=== PATIENT | male | born 1930 | race Hispanic/Latino ===

== ENCOUNTER 2017-10-01 10:25 | Inpatient (IN) | payer MEDICARE ==
[2017-10-01 10:43] VITALS: BMI 28.3
--- NOTE | 2017-10-01 11:14 | ED PDOC ---
Arrival/HPI - General Chief Complaint: Altered Mental Status Time Seen by Provider: 10/01/17 10:32 Historian: Patient - History of Present Illness Narrative History of Present Illness (Text): 10/01/17 11:08 A 87 year old male, whose past medical history includes COPD, emphysema, presents to the emergency department complaining of hallucinations and questionable fall. as per family, pt has had symptoms x few montsh, at times "reliving dreams". had possilbe fal few days ago. Patient was sent by PMD for evaluation of symptoms. Patient denies any other complaints at this time. No PMD 10/01/17 16:55 Past Medical History - Provider Review Nursing Documentation Reviewed: Yes - Tetanus Immunization Tetanus Immunization: Unknown - Pulmonary Hx Respiratory Disorders: Yes Hx Chronic Obstructive Pulmonary Disease (COPD): Yes Hx Emphysema: Yes - Neurological Hx Paralysis: No - HEENT Hx HEENT Disorder: Yes (6 INJECTIONS TO EYE (L).RIGHT EYE BLURRY VISION) Hx Macular Degeneration: Yes - Renal Hx Renal Disorder: Yes Hx Dialysis: (X12 TIMES COMPLETED AND REVERSED.) Hx Renal Failure: Yes - Hematological/Oncological Hx Blood Transfusions: No Hx Blood Transfusion Reaction: No - Musculoskeletal/Rheumatological Hx Musculoskeletal Disorders: Yes - Gastrointestinal Hx Gastrointestinal Disorders: Yes Hx Diverticulitis: Yes Hx Gastroesophageal Reflux: Yes - Genitourinary/Gynecological Hx Genitourinary Disorders: Yes (ACUTE RENAL FAILURE WITH HD(NEW)) - Psychiatric Hx Substance Use: No - Surgical History Hx Cardiac Catheterization: Yes Hx Coronary Stent: Yes (X1) - Anesthesia Hx Anesthesia Reactions: No Hx Malignant Hyperthermia: No - Suicidal Assessment Feels Threatened In Home Enviroment: No Family/Social History - Physician Review Nursing Documentation Reviewed: Yes Family/Social History: No Known Family HX Smoking Status: Former Smoker Hx Alcohol Use: No Hx Substance Use: No Hx Substance Use Treatment: No Allergies/Home Meds Allergies/Adverse Reactions: Allergies No Known Allergies Allergy (Verified 10/30/12 10:59) Home Medications: Home Meds Medication Instructions Recorded Confirmed Tiotropium [Spiriva] 18 mcg IH DAILY 01/15/13 10/01/17 Alprazolam [Xanax] 0.5 mg PO DAILY PRN 10/24/15 10/01/17 Amlodipine Besylate [Norvasc] 2.5 mg PO DAILY 10/24/15 10/01/17 Aspirin [Ecotrin] 81 mg PO DAILY 10/24/15 10/01/17 Atorvastatin [Lipitor] 40 mg PO DAILY 10/24/15 10/01/17 Budesonide/Formoterol Fumarate 1 puff INH BID 10/24/15 10/01/17 [Symbicort 80-4.5 Mcg Inhaler] Furosemide 40 mg PO DAILY 10/24/15 10/01/17 Gabapentin [Neurontin] 100 mg PO TID 10/24/15 10/01/17 Nortriptyline HCl 10 mg PO DAILY 10/24/15 10/01/17 Omeprazole 20 mg PO DAILY 10/24/15 10/01/17 Calcium Carbonate/Vitamin D3 1 tab PO DAILY 10/01/17 10/01/17 [Caltrate 600 Plus D3 Tablet] Review of Systems - Physician Review All systems were reviewed & negative as marked: Yes - Review of Systems Constitutional: Other (questionable fall). absent: Fevers Psychiatric: Other (hallucinations) Physical Exam Vital Signs Reviewed: Yes Vital Signs Temp Pulse Resp BP Pulse Ox 10/01/17 15:39 63 18 127/63 98 10/01/17 13:07 61 18 128/56 L 98 10/01/17 10:25 97.6 F 65 18 126/71 99 Temperature: Afebrile Blood Pressure: Normal Pulse: Regular Respiratory Rate: Normal Appearance: Positive for: Well-Appearing Pain Distress: None Mental Status: Positive for: Alert and Oriented X 3 - Systems Exam Head: Present: Atraumatic, Normocephalic Pupils: Present: PERRL Extroacular Muscles: Present: EOMI Conjunctiva: Present: Normal Mouth: Present: Moist Mucous Membranes Neck: Present: Normal Range of Motion Respiratory/Chest: Present: Clear to Auscultation, Good Air Exchange. No: Respiratory Distress, Accessory Muscle Use Cardiovascular: Present: Regular Rate and Rhythm, Normal S1, S2. No: Murmurs Abdomen: No: Tenderness, Distention, Peritoneal Signs Back: Present: Normal Inspection Upper Extremity: Present: Normal Inspection. No: Cyanosis, Edema Lower Extremity: Present: Normal Inspection. No: Edema Neurological: Present: GCS=15, CN II-XII Intact, Speech Normal Skin: Present: Warm, Dry, Normal Color. No: Rashes Psychiatric: Present: Alert, Oriented x 3, Normal Insight, Normal Concentration Medical Decision Making ED Course and Treatment: 10/01/17 11:12 Impression: 87 year old male hallucinations and questionable fall. Benign physical exam. ro metabolic infectiou intracranial etiology Plan: -- EKG -- Head CT -- Chest X-ray -- Labs -- Urinalysis -- Reassess and disposition Progress Notes: 10/01/2017 11:[address] IMPRESSION: No acute intracranial abnormality. Mild chronic microangiopathic changes and moderate age-related global parenchymal volume loss. Dictator: Preeti Collado MD 10/01/2017 11:40 Chest X-ray IMPRESSION: No active pulmonary disease. Dictator: Preeti Collado MD 10/01/17 16:[address] guthrie will admit for worsenig renal insufficiency. consider uremia, - Lab Interpretations Lab Results: 10/01/17 11:20 10/01/17 11:20 Lab Results 10/01/17 11:20: Sodium 140, Potassium 5.2 H, Chloride 104, Carbon Dioxide 23, Anion Gap 18, BUN 66 H, Creatinine 4.0 H, Est GFR ( Amer) 17, Est GFR ( Non-Af Amer) 14, Random Glucose 129 H, Calcium 9.2, Magnesium 2.3 H, Total Bilirubin 1.2, AST 36, ALT 45, Alkaline Phosphatase 103, Lactate Dehydrogenase 536, Total Creatine Kinase 45, Troponin I 0.01 D, Total Protein 8.1, Albumin 4.4, Globulin 3.8, Albumin/Globulin Ratio 1.2 10/01/17 11:20: PT 15.3 H, INR 1.32 H, APTT 29.0 10/01/17 11:20: WBC 11.0 D, RBC 5.10, Hgb 15.7, Hct 45.8, MCV 89.8, MCH 30.8, MCHC 34.3, RDW 13.2, Plt Count 236, MPV 10.1, Gran % 71.6 H, Lymph % (Auto) 10.3 L, Wilson % (Auto) 15.8 H, Eos % (Auto) 2.0, Baso % (Auto) 0.3, Gran # 7.84 H , Lymph # (Auto) 1.1 L, Wilson # (Auto) 1.7 H, Eos # (Auto) 0.2, Baso # (Auto) 0.03 10/01/17 11:02: Urine Color Cancelled, Urine Appearance Cancelled, Urine pH Cancelled, Ur Specific [place] Cancelled, Urine Protein Cancelled, Urine Glucose (UA) Cancelled, Urine Ketones Cancelled, Urine Blood Cancelled, Urine Nitrate Cancelled, Urine Bilirubin Cancelled, Urine Urobilinogen Cancelled, Ur Leukocyte Esterase Cancelled, Urine RBC Cancelled, Urine WBC Cancelled, Ur Epithelial Cells Cancelled, Calcium Oxalate Crystal Cancelled, Uric Acid Crystals Cancelled, Triple Phos Crystals Cancelled, Other Crystals Cancelled, Amorphous Sediment Cancelled, Urine Bacteria Cancelled, Hyaline Casts Cancelled , Fine Granular Casts Cancelled, Coarse Granular Casts Cancelled, Waxy Casts Cancelled, RBC Casts Cancelled, WBC Casts Cancelled, Urine Other Cancelled - RAD Interpretation Radiology Orders: 10/01/17 10:53 HEAD W/O CONTRAST [CT] Stat 10/01/17 11:03 CHEST PORTABLE [RAD] Stat - Medication Orders Current Medication Orders: Albuterol/Ipratropium (Duoneb 3 Mg/0.5 Mg (3 Ml) Ud) 3 ml IH [id number] BRYAN Alprazolam (Xanax) 0.5 mg PO DAILY PRN; Protocol PRN Reason: Anxiety Amlodipine Besylate (Norvasc) 2.5 mg PO DAILY [facility] Aspirin (Ecotrin) 81 mg PO DAILY BRYAN Atorvastatin Calcium (Lipitor) 40 mg PO DAILY BRYAN Clopidogrel Bisulfate (Plavix) 75 mg PO DAILY BRYAN Gabapentin (Neurontin) 100 mg PO TID BRYAN PRN Reason: Protocol Sodium Chloride (Sodium Chloride 0.45%) 1,000 mls @ 80 mls/hr IV [id number] BRYAN Isosorbide Mononitrate (Imdur Er) 30 mg PO DAILY BRYAN Metoprolol Tartrate (Lopressor) 25 mg PO BID BRYAN Nortriptyline HCl (Pamelor) 10 mg PO DAILY BRYAN Pantoprazole Sodium (Protonix Ec Tab) 20 mg PO 0600 BRYAN Tamsulosin HCl (Flomax) 0.4 mg PO DAILY BRYAN Tiotropium Dieterich (Spiriva) 18 mcg IH DAILY BRYAN - Scribe Statement The provider has reviewed the documentation as recorded by the Nelson Ortega Provider Scribe Attestation: All medical record entries made by the Scribe were at my direction and personally dictated by me. I have reviewed the chart and agree that the record accurately reflects my personal performance of the history, physical exam, medical decision making, and the department course for this patient. I have also personally directed, reviewed, and agree with the discharge instructions and disposition. Disposition/Present on Arrival - Present on Arrival Any Indicators Present on Arrival: No History of DVT/PE: No History of Uncontrolled Diabetes: No Urinary Catheter: No History of Decub. Ulcer: No History Surgical Site Infection Following: None - Disposition Have Diagnosis and Disposition been Completed?: Yes Diagnosis: Altered mental status, Renal failure Disposition: HOSPITALIZED Disposition Time: 03:00 Patient Problems: Current Active Problems Problem Status Onset Altered mental status Acute Renal failure Acute Condition: STABLE
[2017-10-01 11:25] LABS: BASO # 0.03 K/mm3 (0.0-2.0); BASO % 0.3 % (0.0-3.0); EOS # 0.2 (0.0-0.7); GRAN # 7.84 (1.4-6.5); GRAN % 71.6 % (50.0-68.0); HEMOGLOBIN 15.7 g/dL (14.0-18.0); LYMPH # 1.1 (1.2-3.4); LYMPH % 10.3 % (22.0-35.0); MEAN CELL VOLUME 89.8 fl (80.0-105.0); MEAN CORPUSCULAR HEMOGLOBIN 30.8 pg (25.0-35.0); MEAN CORPUSCULAR HGB CONC 34.3 g/dl (31.0-37.0); MEAN PLATELET VOLUME 10.1 fl (7.0-11.0); MONO # 1.7 (0.1-0.6); MONO % 15.8 % (1.0-6.0); RBC 5.1 10^6/uL (3.5-6.1); RED CELL DISTRIBUTION WIDTH 13.2 % (11.5-14.5)
--- NOTE | 2017-10-01 11:36 | CT ---
PROCEDURE: CT HEAD WITHOUT CONTRAST. HISTORY: Altered mental status COMPARISON: None available. TECHNIQUE: Axial computed tomography images were obtained through the head/brain without intravenous contrast. Radiation dose: Total exam DLP = 903.12 mGy-cm. This CT exam was performed using one or more of the following dose reduction techniques: Automated exposure control, adjustment of the mA and/or kV according to patient size, and/or use of iterative reconstruction technique. FINDINGS: HEMORRHAGE: No intracranial hemorrhage. BRAIN: There are mild chronic microangiopathic changes. There is no mass, mass effect or abnormal extra-axial fluid collection. There is no territorial infarction. There are coarse atherosclerotic calcifications in the cavernous carotid arteries. VENTRICLES: There is moderate age-related global parenchymal volume loss and proportionate enlargement of the ventricles and cortical sulci. CALVARIUM: There is no calvarial fracture or extracranial soft tissue swelling. PARANASAL SINUSES: Predominantly clear. MASTOID AIR CELLS: Predominantly clear. OTHER FINDINGS: None. IMPRESSION: No acute intracranial abnormality. Mild chronic microangiopathic changes and moderate age-related global parenchymal volume loss.
[2017-10-01 11:38] LABS: ALB/GLOB RATIO 1.2 (1.1-1.8); ALBUMIN 4.4 g/dL (3.0-4.8); CALCIUM 9.2 mg/dL (8.4-10.5)
--- NOTE | 2017-10-01 11:42 | RAD ---
HISTORY: Altered mental status COMPARISON: 06/19/2016. FINDINGS: LUNGS: The lungs are well inflated and. PLEURA: No significant pleural effusion identified, no pneumothorax apparent. CARDIOVASCULAR: The heart is normal in size. Atherosclerotic aortic arch calcifications are present. There is stable position of a left-sided pacemaker. OSSEOUS STRUCTURES: No significant abnormalities. VISUALIZED UPPER ABDOMEN: Normal. OTHER FINDINGS: None. IMPRESSION: No active pulmonary disease.
[2017-10-01 11:49] LABS: TROPONIN I 0.01 ng/mL
[2017-10-01 11:50] LABS: INR 1.32 (0.93-1.08); PROTHROMBIN TIME 15.3 SECONDS (9.4-12.5)
[2017-10-01 14:22] LABS: PH,URINE 5.5 (4.7-8.0); URINE BILIRUBIN NEGATIVE (NEGATIVE); URINE BLOOD SMALL (NEGATIVE); URINE GLUCOSE (UA) NEGATIVE (NEGATIVE); URINE LEUKOCYTE ESTERASE NEGATIVE Leu/uL (NEGATIVE); URINE PROTEIN NEGATIVE mg/dL (<30 mg/dL); URINE UROBILINOGEN 0.2 E.U./dL (<1 E.U./dL)
[2017-10-01 14:25] LABS: URINE APPEARANCE CLEAR (CLEAR); URINE COLOR YELLOW (YELLOW)
[2017-10-01 14:35] LABS: URINE BACTERIA SMALL (NEG); URINE WBC 0 - 2 /hpf (0-6)
--- NOTE | 2017-10-01 15:29 | CP.PCM.HP ---
History of Present Illness - History of Present Illness History of Present Illness: This is an 87 year old male with history of chronic kidney disease, hypertension, chronic obstructive pulmonary disease, and coronary artery disease who presented to the ER with altered mental state. According to his daughter, Camila, patient was hallucinating and not answering questions appropriately. Bloodwork was done which showed that his renal function had worsened from baseline. Patient has previous history of interstitial nephritis with dialysis, but is currently not on dialysis. He denies chest pain or shortness of breath. Present on Admission - Present on Admission Any Indicators Present on Admission: No History of DVT/PE: No History of Uncontrolled Diabetes: No Urinary Catheter: No Decubitus Ulcer Present: No Review of Systems - Constitutional Constitutional: absent: Chills, Fever - Cardiovascular Cardiovascular: absent: Chest Pain, Diaphoresis, Dyspnea - Respiratory Respiratory: absent: Cough, Dyspnea, Wheezing - Gastrointestinal Gastrointestinal: absent: Abdominal Pain, Nausea, Vomiting Past Patient History - Tetanus Immunizations Tetanus Immunization: Unknown - Past Social History Smoking Status: Former Smoker Home Situation {Lives}: With Family - CARDIAC Hx Cardiac Disorders: Yes - PULMONARY Hx Respiratory Disorders: Yes Hx Chronic Obstructive Pulmonary Disease (COPD): Yes Hx Emphysema: Yes - NEUROLOGICAL Hx Paralysis: No - HEENT Hx HEENT Problems: Yes (6 INJECTIONS TO EYE (L).RIGHT EYE BLURRY VISION) Hx Macular Degeneration: Yes - RENAL Hx Chronic Kidney Disease: Yes Hx Dialysis: (X12 TIMES COMPLETED AND REVERSED.) Hx Renal Failure: Yes - HEMATOLOGICAL/ONCOLOGICAL Hx Blood Transfusions: No Hx Blood Transfusion Reaction: No - MUSCULOSKELETAL/RHEUMATOLOGICAL Hx Musculoskeletal Disorders: Yes Hx Arthritis: Yes - GASTROINTESTINAL Hx Gastrointestinal Disorders: Yes Hx Diverticulitis: Yes Hx Gastroesophageal Reflux: Yes - GENITOURINARY/GYNECOLOGICAL Hx Genitourinary Disorders: Yes (ACUTE RENAL FAILURE) - PSYCHIATRIC Hx Substance Use: No - SURGICAL HISTORY Hx Cardiac Catheterization: Yes Hx Coronary Stent: Yes (X1) - ANESTHESIA Hx Anesthesia Reactions: No Hx Malignant Hyperthermia: No Meds Allergies/Adverse Reactions: Allergies Allergy/AdvReac Type Severity Reaction Status Date / Time No Known Allergies Allergy Verified 10/30/12 10:59 Physical Exam - Constitutional Appears: No Acute Distress - Head Exam Head Exam: ATRAUMATIC, NORMOCEPHALIC - Respiratory Exam Respiratory Exam: Clear to Auscultation Bilateral, NORMAL BREATHING PATTERN - Cardiovascular Exam Cardiovascular Exam: +S1, +S2 - GI/Abdominal Exam GI & Abdominal Exam: Normal Bowel Sounds, Soft. absent: Tenderness - Neurological Exam Neurological exam: Alert, Oriented x3 Results - Vital Signs Recent Vital Signs: Last Vital Signs Temp 97.6 F 10/01/17 10:25 Pulse 61 10/01/17 13:07 Resp 18 10/01/17 13:07 BP 128/56 L 10/01/17 13:07 Pulse Ox 98 10/01/17 13:07 - Labs Result Diagrams: 10/01/17 11:20 10/01/17 11:20 Labs: Laboratory Results - last 24 hr 10/01/17 14:10 Urine Color Yellow Urine Appearance Clear Urine pH 5.5 Ur Specific [place] 1.020 Urine Protein Negative Urine Glucose (UA) Negative Urine Ketones Negative Urine Blood Small H Urine Nitrate Negative Urine Bilirubin Negative Urine Urobilinogen 0.2 Ur Leukocyte Esterase Negative Urine RBC 10 - 15 Urine WBC 0 - 2 Ur Epithelial Cells None Urine Bacteria Small Assessment & Plan - Assessment and Plan (Free Text) Assessment: Altered Mental State Acute on chronic kidney disease COPD CAD with history of stent BPH Plan: Patient has been hallucinating and not in his usual mental state as per his daughter. CT Head shows chronic microangiopathic changes; no acute changes. We will have Dr. Porter, neurologist, see the patient. His renal function has become worse. It is possible mental status change is secondary to worsening renal function. Dr. Blum/ Dr. Quinonez will see the patient. He follows up with them for his chronic kidney disease.
--- NOTE | 2017-10-01 17:59 | CON ---
DATE: 10/01/2017 NEUROLOGY CONSULTATION CHIEF COMPLAINT: Change in mental status. 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 He has been having a poor sleep, only a few hours per night, since he takes care of his throughout the day. He has a very poor sleep hygiene and has been hallucinating. Currently, he is no longer hallucinating. He is answering questions appropriately. He knows month, date, year, and the season as well as the president. Moves all extremities equally, no pronator seen. Sensory exam: Light touch to pinprick, proprioception, and vibration is intact. His CAT scan showed no acute intracranial abnormalities, chronic ischemic changes, and global atrophy. Currently, he is more attentive at this point. He has elevated BUN and creatinine from his baseline. PAST MEDICAL HISTORY: History of chronic kidney disease, hypertension, COPD, headaches, carpal tunnel, bilateral interstitial nephritis, coronary artery disease status post stents, and history of defibrillator. REVIEW OF SYSTEMS: A 14-point review of systems is negative except in the HPI. FAMILY HISTORY: Noncontributory. SOCIAL HISTORY: No illicit drug use, smoking, or EtOH abuse. MEDICATIONS: Reviewed by nurse per reconciliation sheet. PHYSICAL EXAMINATION: VITAL SIGNS: Temperature 97.6, pulse rate is 63, blood pressure 127/63, respiratory rate 18, oxygen saturation 98% by room air. GENERAL: The patient is sitting up in bed, in no acute distress. HEENT: Head is atraumatic and normocephalic. PERRLA. Extraocular muscles intact. NECK: Supple. No JVD. No adenopathy noted. LUNGS: Clear to auscultation. No adventitious sounds. HEART: S1 and S2. Normal rate and rhythm. No murmur, rubs, or gallops. ABDOMEN: Soft, nontender, and nondistended. Bowel sounds are present. EXTREMITIES: No clubbing. No cyanosis. Peripheral pulses 2+ felt bilaterally. NEUROLOGIC: The patient is alert and oriented to person, place, month, and year. Speech is fluent without any errors. Cranial nerves II through XII intact. Poor attention span, slow thought process. Motor exam: Slightly increased tone throughout. No pronator drift seen. Moves all extremities equally. Sensory exam: Light touch to pinprick, proprioception and vibration intact. DTRs are 2+ throughout, 1 at both knee and ankles. Coordination: [id number] intact. No dysmetria noted. Gait is deferred for now. LABORATORY DATA: Sodium is 140, potassium 5.2, chloride 104, carbon dioxide 23. BUN of 56, creatinine 4. Random glucose of 129. ASSESSMENT AND PLAN: This is an 87-year-old man with past medical history of chronic obstructive pulmonary disease, coronary artery disease with stent, history of defibrillator, benign prostatic hypertrophy, history of headaches, he was on Neurontin as well as nortriptyline, who is having hallucinations and is not in his usual mental state as per daughter. He takes care of his daily and has poor sleep hygiene. At this time, I think his transient altered mental status is secondary to transient confusional state, superimposed underlying metabolic encephalopathy as well as hallucinations likely from underlying insomnia. At this time, we recommend: 1. Sleep hygiene advised. 2. We will discontinue his nortriptyline, it is not good in his age group, which is 10 mg p.o. daily. 3. Discontinue gabapentin 100 mg p.o. at bedtime for neuropathic relief given his history of carpal tunnel and headaches. 4. Monitor electrolytes and correct accordingly. 5. Follow up with Nephrology in regards to his acute kidney injury and continue with current present medical management. Thank you for this consult. Ehsan Porter MD
[2017-10-01] MEDS: Sodium Chloride 0.45% 1,000 ML IV SCH (18:55)
[2017-10-01] MEDS: Albuterol-Ipratrop 3 mg / 0.5 (3 ml) UD IH SCH (20:05)
[2017-10-01 20:49] LABS: CREATININE,RANDOM URINE 82 mg/dL
--- NOTE | 2017-10-01 21:27 | CARD ---
APPROVED REPORT EKG Measurement Heart [id number] [place] 200P3 [id number] <Conclusion> AV sequential or dual chamber electronic pacemaker
[2017-10-02] MEDS: Albuterol-Ipratrop 3 mg / 0.5 (3 ml) UD IH SCH ×4 (02:24→20:33)
--- NOTE | 2017-10-02 02:51 | CON ---
DATE: 10/01/[address] Barrera. REFERRING MD: Dr. Barrera. REASON FOR CONSULTATION: Evaluation of a patient well known to me from office followup, who presents with acute renal failure superimposed on chronic kidney disease stage II. HISTORY OF PRESENT ILLNESS: Patient is a pleasant 87-year-old white male with a history of hypertension, history of ASHD, history of COPD. Patient was seen by us back in 2012 with acute renal failure. 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 His creatinine was as high as 20 and patient received acute dialysis. He had several dialysis treatments in the outpatient unit. He was treated appropriately with steroids for his acute interstitial nephritis. His creatinine fell down into the low 1 range. Dialysis was obviously discontinued and patient had remained stable with creatinines in the low 1 range over the last several years. Patient was actually seen by me in the office approximately 1 week ago. His previous creatinine was 1.2. He was noted to have a creatinine in the mid 2 range and was repeated and his creatinine was 4.0. Patient was referred to the hospital for evaluation of acute renal failure. Patient states that he has had intermittent back and shoulder pain. He has used a total of 2 tablets of Advil. He does use Lasix on an intermittent basis, but since he was notified that his creatinine was mildly elevated, Lasix had been placed on hold. Patient takes no nephrotoxic agents. He had no recent contrast or dye studies. Patient does have a history of mild BPH, but no significant urinary retention. Patient was seen by Dr. Barrera because of the elevated creatinine. It was advised him that he be admitted to the hospital for further evaluation. Patient is noted to have a potassium level of 5.2. Glucose was 129. No history of diabetes. We are asked to evaluate patient for his acute renal failure. PAST MEDICAL HISTORY: Significant of acute renal failure secondary to biopsy-proven acute interstitial nephritis in 2012. History of chronic kidney disease stage II with a baseline creatinine in the 1.2 range. History of hypertension, history of hyperlipidemia, history of ASHD, status post permanent pacemaker, AICD, history of aortic stenosis, history of PTCA stent in 2016, history of COPD. MEDICATIONS AT HOME: Include that of Spiriva; Flomax; omeprazole; nortriptyline, which is recently discontinued; Lopressor; Imdur; Neurontin; p.o. Lasix, recently on hold; Plavix; calcium; Symbicort; Lipitor; Ecotrin; Norvasc; and Xanax p.r.n. ALLERGIES: PATIENT HAS NO KNOWN ALLERGIES TO MEDICATIONS. CURRENT MEDICATIONS IN HOSPITAL: Include that of DuoNeb, Ecotrin, Flomax, Imdur, Lipitor, Lopressor, Neurontin, Norvasc, Plavix, Protonix, normal saline 80 mL an hour, Spiriva and Xanax. SOCIAL HISTORY: Past history of cigarette smoking. Presently, no cigarettes. Patient does use alcohol occasionally. Patient has a supportive family and is currently retired. FAMILY HISTORY: Father when he was young, unknown reasons. Mother of old age. No family history of chronic kidney disease. REVIEW OF SYSTEMS: GENERAL: Patient states decreased appetite over the last 1-2 weeks, but no significant weight loss. ENT: Denies any hearing or visual problems. PULMONARY: No history of shortness of breath. Patient has well compensated COPD, on medical therapy and inhalation therapy. CARDIAC: History of ASHD and aortic stenosis as noted above. History of AICD, permanent pacemaker. All stable. GASTROINTESTINAL: No nausea, no vomiting, no diarrhea, no constipation, no abdominal pain. GENITOURINARY: History of kidney disease in the past. History of BPH. ENDOCRINE: No history of diabetes. MUSCULOSKELETAL: History of shoulder and back and neck pain. NEUROLOGIC: No history of CVA, TIA, seizures or syncope. HEMATOLOGIC AND ONCOLOGIC: No history of anemia. No history of malignancy. PSYCHIATRIC: History is negative. PHYSICAL EXAMINATION: GENERAL: The patient is currently seen on 3R. He appears to be in no acute distress. He is eating dinner. IV fluids have not yet been started. VITAL SIGNS: Blood pressure 129/68, respiratory rate is 18 with a temperature of 97.9 and a pulse of 65. Pulse ox is 97%. HEENT: Exam shows him to be normocephalic, atraumatic. Conjunctivae are pink. Sclerae are nonicteric. Pupils are equal, reactive to light, and accommodation. Extraocular muscles are intact. Posterior pharynx is normal. NECK: Supple. No thyromegaly. No lymphadenopathy. No bruits. No neck vein distention. CHEST: Clear to auscultation and percussion with no rales, rhonchi or wheezing. CARDIOVASCULAR: Shows a regular rate and rhythm. AICD/permanent pacemaker. Positive aortic stenosis. No S3, No S4. No rub. ABDOMEN: Soft. Bowel sounds normal. No rebound. No guarding. No masses. No suprapubic dullness. BACK: No CVAT. No spinal tenderness. EXTREMITIES: Show no lower extremity cyanosis, clubbing or edema. Distal lower extremity pulses are 1 to 2+ bilaterally. NEUROLOGIC: Shows him to be alert and oriented x3. There are no gross focal motor or sensory deficits noted. LABORATORY DATA AND IMAGING: Admitting EKG shows paced rhythm. Admitting chest x-ray shows no acute pulmonary disease. Admitting head CT shows no acute intracranial abnormality. Chronic age-related changes. Labs, CBC, white blood cell count 11 with a hemoglobin of 15.7 and platelet count of 236,000. Coags, PT of 50.3 with a PTT of 29. Chemistries: Sodium 140, potassium slightly elevated at 5.2. BUN is 66 with a creatinine of 4. Baseline BUN is in the low 20s with a baseline creatinine in the 1.2 range. Chloride is 104 with a CO2 of 23. Glucose is 129. Calcium is 9.2. Magnesium level is 2.3. Liver enzymes are normal. Albumin level is 4.4. Urinalysis shows no protein, small blood,10-15 red blood cells, 0-2 white blood cells per high-power field, urine bacteria small. ASSESSMENT: 1. Acute renal failure superimposed on chronic kidney disease stage II. Patient has a past medical history significant for biopsy-proven acute interstitial nephritis back in 2012. He required acute dialysis both in hospital and for a brief period of time in the outpatient unit. For the last 4+ years, patient has had a creatinine in the low 1 range. It is uncertain as to why his creatinine is now rising. Initial creatinine from approximately 1 week ago was 2.5 and followup today is 4.0. Patient has no history of obstructive uropathy. He does have a history of benign prostatic hypertrophy and does have a history of acute interstitial nephritis. Renal ultrasounds will be ordered. I will also check a urine Kapil stain for acute interstitial nephritis, but of note, when he had a biopsy proven acute interstitial nephritis in 2013, his urine Kapil stain was negative. I will check his urine lytes. He did take several doses of anti-inflammatories, but it is hard to imagine that 2 doses of ibuprofen could decrease his kidney function significantly. No history of volume depletion. Patient had been on Lasix. This was discontinued. We will check his urine sodium, urine creatinine and fractional excretion of sodium. At this point in time, I will not order a full set of serologies as these were done several years ago and were unremarkable. 2. History of hypertension. Patient may continue amlodipine, beta-dena therapy along with nitrates. We will obviously avoid using angiotensin converting enzyme inhibitors, angiotensin receptor blockers. 3. History of atherosclerotic heart disease, status post permanent pacemaker/automatic implantable cardioverter-defibrillator, history of aortic stenosis, status post percutaneous transluminal coronary angioplasty stent in 2016. Cardiac issues appear to be stable. He does not have critical aortic stenosis by his history. He does do echocardiograms with Dr. Norwood. 4. History of chronic obstructive pulmonary disease secondary to long history of cigarette smoking. Patient remains well compensated on inhalation therapy. 5. Mild hyperkalemia, likely secondary to acute renal failure. Patient will be placed on appropriate diet orders. PLAN: 1. Discussed in great detail with patient and his family. I am concerned about the acute rise in his BUN and creatinine. As of this evening, I do not have an etiology. Testing as noted above will be done. 2. Continue renal diet. 3. Check phosphorus level and see whether or not patient requires binder therapy. 4. Avoid all diuretics. 5. Agree with IV fluid hydration, half-normal saline 80 mL an hour. 6. Continue all cardiac meds. 7. Avoid all contrast CT scans, dye studies and avoid all nephrotoxic agents. Thank you for letting me partake and share in the care of our mutual patient. oRshan Blum MD
[2017-10-02] MEDS: Pantoprazole 20 mg EC Tab PO SCH (06:06)
[2017-10-02 06:18] LABS: BASO # 0.02 K/mm3 (0.0-2.0); BASO % 0.2 % (0.0-3.0); EOS # 0.3 (0.0-0.7); EOS % 3.2 % (1.5-5.0); GRAN # 6.5 (1.4-6.5); GRAN % 68.8 % (50.0-68.0); HEMOGLOBIN 15.3 g/dL (14.0-18.0); LYMPH # 1.1 (1.2-3.4); LYMPH % 11.7 % (22.0-35.0); MEAN CORPUSCULAR HEMOGLOBIN 30.5 pg (25.0-35.0); MEAN CORPUSCULAR HGB CONC 34.3 g/dl (31.0-37.0); MEAN PLATELET VOLUME 10.4 fl (7.0-11.0); MONO # 1.5 (0.1-0.6); MONO % 16.1 % (1.0-6.0); RBC 5.01 10^6/uL (3.5-6.1); RED CELL DISTRIBUTION WIDTH 13.3 % (11.5-14.5); WHITE BLOOD COUNT 9.4 10^3/ul (4.5-11.0)
[2017-10-02] MEDS: Sodium Chloride 0.45% 1,000 ML IV SCH (06:27)
[2017-10-02 06:32] LABS: ALBUMIN 3.9 g/dL (3.0-4.8); CALCIUM 8.9 mg/dL (8.4-10.5)
--- NOTE | 2017-10-02 08:18 | CP.PCM.PN ---
Subjective - Date & Time of Evaluation Date of Evaluation: 10/02/17 Time of Evaluation: 07:45 - Subjective Subjective: Patient is seen this morning in room 361-2. He denies back pain. He is answering questions appropriately. Objective - Vital Signs/Intake and Output Vital Signs (last 24 hours): Temp Pulse Resp BP Pulse Ox 98.2 F 65 18 129/72 96 10/02/17 08:03 10/02/17 08:03 10/02/17 08:03 10/02/17 08:03 10/02/17 08:03 Intake and Output: 10/02/17 10/02/17 06:59 18:59 Intake Total 1440 Output Total 300 Balance 1140 - Medications Medications: Current Medications Albuterol/Ipratropium (Duoneb 3 Mg/0.5 Mg (3 Ml) Ud) 3 ml IH [id number] [facility] Last Admin: 10/02/17 02:24 Dose: Not Given Alprazolam (Xanax) 0.5 mg PO DAILY PRN; Protocol PRN Reason: Anxiety Amlodipine Besylate (Norvasc) 2.5 mg PO DAILY [facility] Aspirin (Ecotrin) 81 mg PO DAILY [facility] Atorvastatin Calcium (Lipitor) 40 mg PO DAILY [facility] Clopidogrel Bisulfate (Plavix) 75 mg PO DAILY [facility] Gabapentin (Neurontin) 100 mg PO HS [facility] PRN Reason: Protocol Last Admin: 10/01/17 21:18 Dose: 100 mg Sodium Chloride (Sodium Chloride 0.45%) 1,000 mls @ 80 mls/hr IV .[id number] [facility] Last Admin: 10/02/17 06:27 Dose: 80 mls/hr Isosorbide Mononitrate (Imdur Er) 30 mg PO DAILY [facility] Metoprolol Tartrate (Lopressor) 25 mg PO BID [facility] Last Admin: 10/01/17 18:45 Dose: 25 mg Pantoprazole Sodium (Protonix Ec Tab) 20 mg PO 0600 [facility] Last Admin: 10/02/17 06:06 Dose: 20 mg Tamsulosin HCl (Flomax) 0.4 mg PO DAILY [facility] Tiotropium [place] (Spiriva) 18 mcg IH DAILY [facility] - Labs Labs: 10/02/17 06:00 10/02/17 06:00 PT 15.3 SECONDS (9.4-12.5) H 10/01/17 11:20 INR 1.32 (0.93-1.08) H 10/01/17 11:20 APTT 29.0 Seconds (25.1-36.5) 10/01/17 11:20 - Constitutional Appears: No Acute Distress - Head Exam Head Exam: ATRAUMATIC, NORMOCEPHALIC - Respiratory Exam Respiratory Exam: Clear to Ausculation Bilateral, NORMAL BREATHING PATTERN - Cardiovascular Exam Cardiovascular Exam: REGULAR RHYTHM, +S1, +S2 - GI/Abdominal Exam GI & Abdominal Exam: Soft, Normal Bowel Sounds. absent: Tenderness - Extremities Exam Extremities Exam: absent: Pedal Edema - Neurological Exam Neurological Exam: Alert, Awake, CN II-XII Intact, Oriented x3 Assessment and Plan - Assessment and Plan (Free Text) Assessment: Acute on Chronic kidney disease CAD COPD Neuropathy Encephalopathy Plan: Patient admitted yesterday with acute on chronic kidney disease. BUN and creatinine have decreased since yesterday with IV fluids. We will continue IV hydration. Nephrology, Neurology and Cardiology consults appreciated. Patient to go for renal ultrasound and echocardiogram today. We will also order an EEG. Patient is oriented times 3 this morning. He is answering questions appropriately. He has been taken off nortriptylline and neurontin reduced to once at night for neuropathy. continue to monitor renal function.
[2017-10-02 08:21] LABS: HDL CHOLESTEROL 25 mg/dL (29-60)
[2017-10-02 08:32] LABS: LDL CHOLESTEROL 36 mg/dL (0-129)
--- NOTE | 2017-10-02 12:54 | US ---
PROCEDURE: Ultrasound of the Kidneys HISTORY: ARF, CKD 2 baseline, r/O hydro COMPARISON: 03/06/2013 abdominal ultrasound. TECHNIQUE: Sonogram of the kidneys. FINDINGS: RIGHT KIDNEY: Measures: 7.1 x 12.6 cm. Normal in size, contour and echogenicity. Multiple echogenic foci with and a distended collecting system none larger than 1 cm. Moderate hydronephrosis and hydro LEFT KIDNEY: Measures: 5.4 x 9.7 cm. Normal in size, contour and echogenicity. Solitary calculus 1 cm mid pole collecting system. OTHER FINDINGS: None. IMPRESSION: Renal calculus displays bilaterally. Unilateral, right hydronephrosis and hydroureter
[2017-10-02] MEDS: Tiotropium 18 mcg Cap For Inhalation IH SCH (12:58)
--- NOTE | 2017-10-02 16:46 | CP.PCM.PN ---
Subjective - Date & Time of Evaluation Date of Evaluation: 10/02/17 Time of Evaluation: 16:40 - Subjective Subjective: DATE: 10/02/2017 NEUROLOGY FOLLOW UP CHIEF COMPLAINT: Change in mental status. SUBJECTIVE; No acute events overnight. Doing much better. EEG showed no seizure activity. PAST MEDICAL HISTORY: History of chronic kidney disease, hypertension, COPD, headaches, carpal tunnel, bilateral interstitial nephritis, coronary artery disease status post stents, and history of defibrillator. REVIEW OF SYSTEMS: A 14-point review of systems is negative except in the HPI. FAMILY HISTORY: Noncontributory. SOCIAL HISTORY: No illicit drug use, smoking, or EtOH abuse. MEDICATIONS: Reviewed by nurse per reconciliation sheet. PHYSICAL EXAMINATION: VITAL SIGNS: Reviewed. GENERAL: The patient is sitting up in bed, in no acute distress. HEENT: Head is atraumatic and normocephalic. PERRLA. Extraocular muscles intact. NECK: Supple. No JVD. No adenopathy noted. LUNGS: Clear to auscultation. No adventitious sounds. HEART: S1 and S2. Normal rate and rhythm. No murmur, rubs, or gallops. ABDOMEN: Soft, nontender, and nondistended. Bowel sounds are present. EXTREMITIES: No clubbing. No cyanosis. Peripheral pulses 2+ felt bilaterally. NEUROLOGIC: The patient is alert and oriented to person, place, month, and year. Speech is fluent without any errors. Cranial nerves II through XII intact. Poor attention span, slow thought process. Motor exam: Slightly increased tone throughout. No pronator drift seen. Moves all extremities equally. Sensory exam: Light touch to pinprick, proprioception and vibration intact. DTRs are 2+ throughout, 1 at both knee and ankles. Coordination: [id number] intact. No dysmetria noted. Gait is deferred for now. LABORATORY DATA: Reviewed via chart. ASSESSMENT AND PLAN: This is an 87-year-old man with past medical history of chronic obstructive pulmonary disease, coronary artery disease with stent, history of defibrillator, benign prostatic hypertrophy, history of headaches, he was on Neurontin as well as nortriptyline, who is having hallucinations and is not in his usual mental state as per daughter. He takes care of his daily and has poor sleep hygiene. At this time, I think his transient altered mental status is secondary to transient confusional state, superimposed underlying metabolic encephalopathy as well as hallucinations likely from underlying insomnia. At this time, we recommend: 1. Sleep hygiene advised. 2. We will discontinue his nortriptyline, it is not good in his age group, which is 10 mg p.o. daily. 3.Monitor electrolytes and correct accordingly. 4. Follow up with Nephrology in regards to his acute kidney injury and continue with current present medical management. Thank you Ehsan Porter MD Objective - Vital Signs/Intake and Output Vital Signs (last 24 hours): Temp Pulse Resp BP Pulse Ox 98.2 F 90 18 136/78 96 10/02/17 08:03 10/02/17 13:01 10/02/17 08:03 10/02/17 13:01 10/02/17 08:03 Intake and Output: 10/02/17 10/02/17 06:59 18:59 Intake Total 1440 540 Output Total 300 400 Balance 1140 140 - Medications Medications: Current Medications Albuterol/Ipratropium (Duoneb 3 Mg/0.5 Mg (3 Ml) Ud) 3 ml IH [id number] [facility] Last Admin: 10/02/17 13:21 Dose: 3 ml Alprazolam (Xanax) 0.5 mg PO DAILY PRN; Protocol PRN Reason: Anxiety Amlodipine Besylate (Norvasc) 2.5 mg PO DAILY [facility] Last Admin: 10/02/17 12:58 Dose: 2.5 mg Aspirin (Ecotrin) 81 mg PO DAILY [facility] Last Admin: 10/02/17 12:57 Dose: 81 mg Atorvastatin Calcium (Lipitor) 40 mg PO DAILY [facility] Last Admin: 10/02/17 12:57 Dose: 40 mg Clopidogrel Bisulfate (Plavix) 75 mg PO DAILY [facility] Last Admin: 10/02/17 12:58 Dose: 75 mg Gabapentin (Neurontin) 100 mg PO HS [facility] PRN Reason: Protocol Last Admin: 10/01/17 21:18 Dose: 100 mg Sodium Chloride (Sodium Chloride 0.45%) 1,000 mls @ 80 mls/hr IV .[id number] [facility] Last Admin: 10/02/17 06:27 Dose: 80 mls/hr Isosorbide Mononitrate (Imdur Er) 30 mg PO DAILY [facility] Last Admin: 10/02/17 12:57 Dose: 30 mg Metoprolol Tartrate (Lopressor) 25 mg PO BID [facility] Last Admin: 10/02/17 12:57 Dose: 25 mg Pantoprazole Sodium (Protonix Ec Tab) 20 mg PO 0600 [facility] Last Admin: 10/02/17 06:06 Dose: 20 mg Tamsulosin HCl (Flomax) 0.4 mg PO DAILY [facility] Last Admin: 10/02/17 12:57 Dose: 0.4 mg Tiotropium [place] (Spiriva) 18 mcg IH DAILY [facility] Last Admin: 10/02/17 12:58 Dose: 18 mcg - Labs Labs: 10/02/17 06:00 10/02/17 06:00 PT 15.3 SECONDS (9.4-12.5) H 10/01/17 11:20 INR 1.32 (0.93-1.08) H 10/01/17 11:20 APTT 29.0 Seconds (25.1-36.5) 10/01/17 11:20
--- NOTE | 2017-10-02 17:45 | CARD ---
APPROVED REPORT EXAM: Two-dimensional and M-mode echocardiogram with Doppler and color Doppler. INDICATION CVA/TIA 2D DIMENSIONS IVSd1.4 (0.7-1.1cm)LVDd4.2 (3.9-5.9cm) LVOT Diameter1.8 (1.8-2.4cm)PWd1.4 (0.7-1.1cm) LVDs3.2 (2.5-4.0cm)FS (%) 25.0 % LVEF (%)49.9 (>50%) M-Mode DIMENSIONS Aortic Root2.70 (2.2-3.7cm)Aortic Cusp Exc.0.60 (1.5-2.0cm) Aortic Valve AoV Peak Rnpmuwcu717.0cm/sAoV VTI74.2cmAO Peak GR.54mmHg LVOT Peak Zzatccnr93.5cm/sLVOT VTI11.40cmAO Mean GR.30mmHg YVONNE (VMAX)0.71jt4LFO (VTI)0.39cm2 Mitral Valve MV E Vopjauto455.0cm/sMV A Ptjefkyo882.0cm/sMV QSZ060uw E/A ratio0.6MVA (PHT)1.47cm2 TDI E/Lateral E'0.0E/Medial E'0.0 Tricuspid Valve TR Peak Hihilygm281fm/sTR Peak Gr.27mmHg LEFT VENTRICLE The left ventricle is normal size. There is mild concentric left ventricular hypertrophy. The systolic function is moderately impaired.EF-35-40% There is moderate hypokinesis in the apical anterior wall. Transmitral Doppler flow pattern is Grade III-reversible restrictive diastolic dysfunction. No left ventricle thrombus noted on this study. There is no ventricular septal defect visualized. There is no left ventricular aneurysm. There is no mass noted in the left ventricle. RIGHT VENTRICLE The right ventricle is normal size. There is normal right ventricular wall thickness. The right ventricular systolic function is normal. There is a pacemaker lead in the right ventricle. ATRIA The left atrium is mildly dilated. The right atrium size is normal. There is a catheter/pacemaker lead seen in the right atrium. The interatrial septum is intact with no evidence for an atrial septal defect. AORTIC VALVE The aortic valve is calcified and displays decreased opening. There is mild to moderate aortic regurgitation. There is severe valvular aortic stenosis. There is no aortic valvular vegetation. MITRAL VALVE The mitral valve is calcified and displays decreased opening. Mitral regurgitation is mild to moderate. There is mild to moderate mitral valve stenosis. There is no evidence of mitral valve prolapse. TRICUSPID VALVE The tricuspid valve leaflets are thickened , but open well. There is mild tricuspid regurgitation.RVSP_27 mmof hg. There is no tricuspid valve stenosis. There is no tricuspid valve prolapse or vegetation. GREAT VESSELS The aortic root is normal in size. The ascending aorta is normal in size. The pulmonary artery is normal. The IVC is normal in size and collapses >50% with inspiration. PERICARDIAL EFFUSION There is no pleural effusion. There is no pericardial effusion. <Conclusion> The left ventricle is normal size. There is mild concentric left ventricular hypertrophy. The systolic function is moderately impaired.EF-35-40% There is mild to moderate aortic regurgitation. There is severe valvular aortic stenosis. Mitral regurgitation is mild to moderate. There is mild to moderate mitral valve stenosis. There is mild tricuspid regurgitation.RVSP_27 mmof hg. The IVC is normal in size and collapses >50% with inspiration. There is no pericardial effusion. AICD lead noted in RA/RV.
--- NOTE | 2017-10-02 18:23 | PN ---
DATE: 10/02/2017 SUBJECTIVE: The patient is seen sitting in bed. He is awake, he is alert. He denies any shortness of breath. He denies any nausea, vomiting, or diarrhea. He denies any chest tightness. PHYSICAL EXAMINATION: GENERAL: Elderly male sitting in bed. VITAL SIGNS: Blood pressure 136/78, heart rate 90, respiratory rate 18, temperature 98.2. HEENT: Normocephalic, atraumatic. NECK: Supple, no JVD. LUNGS: Bilateral equal air entry, bilateral equal expansion. CARDIAC: S1, S2, regular rate and rhythm, no murmur, no rub. ABDOMEN: Obese, distended, soft, nontender, bowel sounds present. EXTREMITIES: No lower extremity edema. INTAKE AND OUTPUT: 1440/300 LABORATORY DATA: WBC 9.4, hemoglobin 15, hematocrit 44.5, and platelets 237. Sodium 140, potassium 4.7, chloride 107, CO2 of 20. BUN 59, creatinine 3.2. Glucose 110. Calcium 8.9, phosphorus 3.9, magnesium 2.3, albumin 3.9. Urinalysis, yellow clear, pH 5.5, specific gravity 1.020, protein negative, glucose negative, blood small, rbc's 10 to 15. Renal ultrasound: Right kidney 7.1 cm, multiple echogenic foci with distended collecting system, moderate hydro. Right kidney 12.6 cm, left kidney 9.7 cm. CURRENT MEDICATIONS: DuoNeb, Ecotrin, Flomax, Imdur, Lipitor, Lopressor 25 b.i.d., gabapentin 100, amlodipine 2.5, Plavix 75, Protonix 20, half normal saline at 80, Spiriva, Xanax. ASSESSMENT/PLAN: 1. Acute kidney injury superimposed on chronic kidney disease stage 2, acute components resolving slowly. Baseline creatinine is around mid 1s. One week ago, his creatinine was 2.5 and yesterday, his creatinine was 4. He reports using some Advil for back pain/shoulder pain. His ultrasound is consistent with right hydronephrosis with right obstructing calculi? 2. Component of prerenal azotemia. 3.. Hypertension. 4. History of acute kidney injury/acute interstitial nephritis requiring dialysis in 2012. PLAN: 1. Continue IV fluids. 2. Urology evaluation. 3. Monitor urine output closely. 4. Avoid nephrotoxins. 5. Daily labs. 6. No uremic signs and symptoms at this time, no plans for renal replacement therapy. Savannah Quinonez MD
--- NOTE | 2017-10-02 21:10 | CON ---
DATE: 10/02/2017 REASON FOR CONSULTATION: Coronary artery disease status post stent, multiple; history of AICD, admitted with altered mental status, acute kidney injury. BRIEF CLINICAL HISTORY: This is an 87-year-old male with past medical history significant for coronary artery disease, renal insufficiency, cardiomyopathy, hypertension, hyperlipidemia, status post AICD 7 years ago at [facility] by Dr. Burks, who had a last angioplasty done on 11/10/2015 with stenting of RPDA, distal RCA with drug-eluting stent because of abnormal stress test at the time dated 10/24/2015, who admitted here with altered mental status, family noticed that the patient is not mentally with it; found to be in acute kidney injury on chronic renal insufficiency, now the symptoms of altered mental status is improving. Denies any chest pain, shortness of breath or any palpitation. PAST MEDICAL HISTORY: Significant for resolved acute kidney injury in the past 2015; history of significant aortic stenosis, mitral stenosis, moderate aortic regurgitation, mild to moderate mitral regurgitation; history of AICD 7-8 years ago because of the multiple syncopal episodes. At that time, the patient was sent to [facility] by Dr. Burks, AICD was placed. The patient is a , goes to the [facility] and gets medication from [place]. History of PTCA twice, first one was 7 years ago and the last one PTCA had on 11/10/2015. Previous cardiac workup as follows; the patient had a cardiac catheterization on 11/10/2015. At that time, the patient had a PTCA of RPDA with a drug-eluting stent as well as distal RCA. At that time, cardiac catheterization revealed single-vessel critical disease involved distal RCA and RPDA, patent stent in LAD, preserved LV function ejection fraction 55%, EDP was in the range of 20, moderate , 20-mm gradient peak to peak on pullback dated 11/10/2015. Prior to that, the patient had a stent in LAD on 07/18/2009. History of stress test on 10/24/2015 that shows reversible ischemia and following this, the patient had a cardiac catheterization and a stent in RCA. The patient had last echo done which showed ejection fraction 55%, upper limit normal, right heart pressure and prior to that, the patient had a cardiac catheterization in 2011, at that time mild aortic stenosis with valve area of 10-12 mm gradient, but the repeat cardiac catheterization on 11/10/2015 shows moderate aortic stenosis, peak gradient of 40 mmHg. After that, the patient has had no further stress test. ALLERGIES: NO KNOWN DRUG ALLERGY. CURRENT MEDICATIONS: The patient is taking Spiriva, thiamine, Flomax, omeprazole, nortriptyline, metoprolol tartrate 25 p.o. b.i.d., isosorbide nitrate, gabapentin, Lasix, Rocaltrol, Lipitor, Ecotrin, amlodipine, Xanax, Imdur 30 mg daily, atorvastatin, amlodipine and Plavix 75 mg daily. REVIEW OF SYSTEMS: As per HPI. PHYSICAL EXAMINATION: VITAL SIGNS: Temperature afebrile, heart rate 65, blood pressure 129/72. HEENT: PERRLA. Extraocular muscles intact. NECK: Supple. No carotid bruit or thyromegaly. CHEST: Clear to auscultation. HEART: S1 and S2 regular. ABDOMEN: Soft. EXTREMITIES: Clubbing and cyanosis negative. LABORATORY DATA: EKG showed AV sequential pacing, underlying normal sinus. Blood workup as follows; WBC 9.5, hemoglobin , hematocrit 44.6, platelet count 237. Chemistry shows sodium 140, potassium , chloride 107, carbon dioxide 20, anion gap of 59, BUN 18, creatinine 3.2. Yesterday's creatinine was 4.2. Prior to that, creatinine on 11/10/2015 was 1. In 2012, the patient has also had acute renal failure with a creatinine of 9.6. Troponin remains negative 0.01. IMPRESSION: Acute kidney injury, altered mental status most likely secondary to renal insufficiency, history of syncope in the past status post automated implantable cardioverter-defibrillator 7 years ago with the patient was transferred after a syncopal episode and had EP study done and automated implantable cardioverter-defibrillator was placed; history of stent in left anterior descending artery on 07/18/2009 and history of stent in the right coronary artery and RPDA on 11/10/2015 with drug-eluting stent, history of moderate aortic stenosis; diabetes, hypertension and hyperlipidemia. RECOMMENDATIONS: We will get echo to assess LV function and assess the aortic stenosis. Continue to monitor in telemetry. Continue IV fluid. Mentation is improving. Most likely altered mental status is secondary to acute kidney injury on base of chronic renal insufficiency. We will follow closely. Further recommendation will be made depending upon the patient's response. We will add lipid profile, TSH, hemoglobin A1c. We will follow with you. Thank you, Dr. Barrera, for providing us the opportunity in taking care of the patient, Roshan Adames. Claudia Gomez MD
[2017-10-03] MEDS: Albuterol-Ipratrop 3 mg / 0.5 (3 ml) UD IH SCH ×4 (01:39→19:18)
[2017-10-03] MEDS: Pantoprazole 20 mg EC Tab PO SCH (05:45)
[2017-10-03] MEDS: Sodium Chloride 0.45% 1,000 ML IV SCH ×3 (06:05→21:34)
[2017-10-03 06:32] LABS: BASO # 0.02 K/mm3 (0.0-2.0); BASO % 0.2 % (0.0-3.0); EOS # 0.3 (0.0-0.7); EOS % 2.9 % (1.5-5.0); GRAN # 6.68 (1.4-6.5); GRAN % 72.5 % (50.0-68.0); HEMOGLOBIN 14.4 g/dL (14.0-18.0); LYMPH % 10.3 % (22.0-35.0); MEAN CELL VOLUME 90.4 fl (80.0-105.0); MEAN CORPUSCULAR HEMOGLOBIN 30.6 pg (25.0-35.0); MEAN CORPUSCULAR HGB CONC 33.9 g/dl (31.0-37.0); MEAN PLATELET VOLUME 10.4 fl (7.0-11.0); MONO # 1.3 (0.1-0.6); MONO % 14.1 % (1.0-6.0); RBC 4.7 10^6/uL (3.5-6.1); RED CELL DISTRIBUTION WIDTH 13.4 % (11.5-14.5); WHITE BLOOD COUNT 9.2 10^3/ul (4.5-11.0)
[2017-10-03 07:00] LABS: CALCIUM 8.7 mg/dL (8.4-10.5)
--- NOTE | 2017-10-03 08:42 | EEG ---
DATE: ELECTROENCEPHALOGRAM CONDITION OF THE RECORDING: Drowsy. DIAGNOSIS: Altered mental status. MEDICATIONS: Reviewed by nurse per reconciliation sheet. INTERPRETATION: This is a 16-channel international recording. The background activity of this tracing was composed of 6 to 7 cycles per second. There was small amount of beta activity of 16 to 20 cycles per second seen the recording. There was increased amount of theta activity of 5 to 7 cycles per second seen this tracing. Drowsiness was characterized by the mixed beta and theta activities. The sleep was characterized by vertex transient waves, sleep spindles and bilateral slowing. Photic stimulation showed no changes in the tracing. No paroxysmal activities noted in this recording. CONCLUSION: This is an abnormal EEG due to the presence of mild diffuse slowing throughout the recording. No evidence of any epileptiform activity. Overall, this is consistent with mild bilateral cerebral dysfunction. Correlate with clinical findings. Ehsan Porter MD
[2017-10-03] MEDS: Tiotropium 18 mcg Cap For Inhalation IH SCH (09:40)
--- NOTE | 2017-10-03 10:18 | CP.PCM.PN ---
Subjective - Date & Time of Evaluation Date of Evaluation: 10/03/17 Time of Evaluation: 06:20 - Subjective Subjective: CARDIOLOGY Seen and examined by me and Dr. Jason Eduardo for consult and follow up: Cardiac evaluation, history of coronary artery disease, post multiple stents, history of AICD [address] Burks at [facility].hypertension, COPD, history of interstitial nephritis with dialysis. denies chest pain or shortness of breath, admitted due to altered mental status due to acute kidney injury Objective - Vital Signs/Intake and Output Vital Signs (last 24 hours): Temp Pulse Resp BP Pulse Ox 98.2 F 60 16 121/59 L 98 10/03/17 08:20 10/03/17 09:40 10/03/17 08:20 10/03/17 09:41 10/03/17 08:20 Intake and Output: 10/03/17 10/03/17 06:59 18:59 Intake Total 1440 120 Output Total 550 Balance 890 120 - Medications Medications: Current Medications Albuterol/Ipratropium (Duoneb 3 Mg/0.5 Mg (3 Ml) Ud) 3 ml IH [id number] [facility] Last Admin: 10/03/17 08:11 Dose: 3 ml Alprazolam (Xanax) 0.5 mg PO DAILY PRN; Protocol PRN Reason: Anxiety Amlodipine Besylate (Norvasc) 2.5 mg PO DAILY [facility] Last Admin: 10/03/17 09:41 Dose: 2.5 mg Aspirin (Ecotrin) 81 mg PO DAILY [facility] Last Admin: 10/03/17 09:40 Dose: 81 mg Atorvastatin Calcium (Lipitor) 40 mg PO DAILY [facility] Last Admin: 10/03/17 09:40 Dose: 40 mg Clopidogrel Bisulfate (Plavix) 75 mg PO DAILY [facility] Last Admin: 10/03/17 09:40 Dose: 75 mg Gabapentin (Neurontin) 100 mg PO HS [facility] PRN Reason: Protocol Last Admin: 10/02/17 22:06 Dose: 100 mg Sodium Chloride (Sodium Chloride 0.45%) 1,000 mls @ 80 mls/hr IV .[id number] [facility] Last Admin: 10/03/17 06:05 Dose: 80 mls/hr Isosorbide Mononitrate (Imdur Er) 30 mg PO DAILY [facility] Last Admin: 10/03/17 09:40 Dose: 30 mg Metoprolol Tartrate (Lopressor) 25 mg PO BID [facility] Last Admin: 10/03/17 09:40 Dose: 25 mg Pantoprazole Sodium (Protonix Ec Tab) 20 mg PO 0600 [facility] Last Admin: 10/03/17 05:45 Dose: 20 mg Tamsulosin HCl (Flomax) 0.4 mg PO DAILY [facility] Last Admin: 10/03/17 09:40 Dose: 0.4 mg Tiotropium [place] (Spiriva) 18 mcg IH DAILY [facility] Last Admin: 10/03/17 09:40 Dose: 18 mcg - Labs Labs: 10/03/17 05:30 10/03/17 05:30 PT 15.3 SECONDS (9.4-12.5) H 10/01/17 11:20 INR 1.32 (0.93-1.08) H 10/01/17 11:20 APTT 29.0 Seconds (25.1-36.5) 10/01/17 11:20 - Constitutional Appears: No Acute Distress - Eye Exam Eye Exam: Normal appearance - ENT Exam ENT Exam: Mucous Membranes Moist, Normal Exam - Respiratory Exam Respiratory Exam: Clear to Ausculation Bilateral, NORMAL BREATHING PATTERN - Cardiovascular Exam Cardiovascular Exam: REGULAR RHYTHM, +S1, +S2 - GI/Abdominal Exam GI & Abdominal Exam: Soft, Normal Bowel Sounds - Extremities Exam Extremities Exam: Normal Capillary Refill - Neurological Exam Neurological Exam: Alert, Awake - Psychiatric Exam Psychiatric exam: Normal Affect, Normal Mood - Skin Skin Exam: Intact, Normal Color, Warm Assessment and Plan - Assessment and Plan (Free Text) Assessment: IMPRESSION: 87 year old Male, admitted due to altered mental status due to acute kidney injury, history of coronary artery disease, post multiple stents, history of AICD [address] Burks at [facility], hypertension, hyperlipidemia, moderate aortic stenosis, COPD, history of interstitial nephritis with dialysis. denies chest pain or shortness of breath, Plan: Stable cardiac status Heart rate and blood pressure stable ECHO done yesterday and result- LV is normal, moderate systolic function, EF 35- 40% Mild to moderate aortic regurgitation, severe valvular aortic stenosis. Being followed up by Renal for renal insufficiency Once renal status improve/ stabilized, will recommend /refer for TAVR for severe aortic stenosis On Norvasc 2.5 mg daily, ASA 81 mg daily,Lipitor 40 mg daily, Plavix 75 mg daily, Imdur ER 30 mg daily, lopressor 25 mg BID Continue current medications Continue current treatment Will follow up Plan and treatment discussed with Dr. Gomez
--- NOTE | 2017-10-03 12:19 | PN ---
DATE: SUBJECTIVE: The patient is an 87-year-old white male. The patient was admitted with altered mental state, hallucinations. The patient had no history of trauma. The patient's past history is significant for history of heart disease. The patient has history of chronic lung disease and hypertension. The patient has history of angina, gastritis, and neuropathy. The patient has carpal tunnel syndrome. The patient was evaluated in the emergency room and admitted with diagnosis of altered mental state and evaluation and treatment. The patient was put on telemetry. PHYSICAL EXAMINATION: VITAL SIGNS: This morning, the patient's pulse is 59, blood pressure 124/64, respirations are 18, O2 saturation 97% on room air. HEENT: The patient's head is normocephalic. LUNGS: Trachea is central. Breath sounds are diminished bilaterally. HEART: Normal sinus rhythm. S1 and S2 present. ABDOMEN: Soft. Liver and spleen not palpable. No distention. No masses. CENTRAL NERVOUS SYSTEM: The patient is conscious, rational, oriented. Seemed to answer all questions and he does not have any symptoms of hallucination or confusion at this time. IMPRESSION AND PLAN: The patient had an EEG and neurological evaluation by Dr. Porter, he is a neurologist. The patient had a cardiac evaluation by Dr. Gomez and Dr. Norwood. The patient had renal evaluation by Dr. Blum and Dr. Devi reyes. The patient has hydronephrosis of right side with renal insufficiency, creatinine of 3.1. We will have Dr. Moreira see the patient on consult, and we will follow up with moderate renal functions. His list of medications consist of albuterol that is DuoNeb every six hours. The patient is on Flomax 0.4 mg daily, aspirin 81 mg daily, Lipitor 40 mg daily, isosorbide mononitrate 30 mg daily, metoprolol 25 mg b.i.d., gabapentin 100 mg at nighttime. The patient takes amlodipine 2.5 mg daily, Plavix 75 mg daily, and pantoprazole 20 mg daily. The patient is also on Xanax p.r.n., add Spiriva once a day. The patient's lab work, sodium is 144, creatinine is 3.1, and BUN is 52. The patient's magnesium is 2.4. The patient is not on any therapeutic magnesium. The patient's hematological findings, hemoglobin is 14.4, total white count is okay. The patient's urinalysis, his rbc is 10-15. In addition, the patient has hydronephrosis. The patient has calculus in the kidney and hydronephrosis, renal calculi associated with renal insufficiency. We will continue current management, followup, and wait for the consultants to make a determination. Need a Renal evaluation by Dr. Moreira. Jovana Barrera MD
--- NOTE | 2017-10-03 14:54 | CT ---
PROCEDURE: CT Abdomen and Pelvis without intravenous contrast HISTORY: assess renal stones, hydronephrosis COMPARISON: Unenhanced abdomen and pelvis CT examination 03/07/2013. TECHNIQUE: Helical CT of the abdomen and pelvis was performed without oral or intravenous contrast as per referring physician request. Contrast Dose: None Radiation dose: Total exam DLP = 816.69 mGy-cm. This CT exam was performed using one or more of the following dose reduction techniques: Automated exposure control, adjustment of the mA and/or kV according to patient size, and/or use of iterative reconstruction technique. FINDINGS: LOWER THORAX: Cardiomegaly is seen as well as extensive coronary artery atherosclerosis and right heart pacemaker/ AICD leads. No definite pleural or pericardial effusion. Restrained motion degrades quality of this exam. LIVER: Unremarkable. No gross lesion or ductal dilatation. GALLBLADDER AND BILE DUCTS: Interval cholecystectomy evident. PANCREAS: Unremarkable. No gross lesion or ductal dilatation. SPLEEN: Unremarkable. ADRENALS: Unremarkable. No mass. KIDNEYS AND URETERS: An upper pole right renal cyst has increased in size now measuring 6.8 x 6.1 cm compared to 5.2 x 4.5 cm. Septations complicating the inferior margins of the cysts are better seen on prior ultrasound also performed 10/02/2017 in the current noncontrast CT exam. Right hydroureteronephrosis appears moderate to severe with a 6.0 x 5.4 cm calculus identified at the right ureterovesical junction. Punctate dependent intrarenal calculi identified at the mid to lower pole right kidney. There is a calculus measuring approximately 6 mm at the lower pole right kidney. Motion artifact limits its accurate measurement. Mild right perinephric reaction is appreciated, borderline at the left. A partial staghorn calculus identified at the mid to lower pole left kidney without renal pelvis involvement. A punctate calculus identified in the upper pole left kidney. VASCULATURE: Atherosclerotic abdominal aorta. No aortic aneurysm. BOWEL: Moderate distention of the stomach is appreciate a retained food and air within bowel largely collapsed throughout. Limited retained fecal material seen throughout various large bowel segments. APPENDIX: Unremarkable. Normal appendix. PERITONEUM: Unremarkable. No free fluid. No free air. LYMPH NODES: Unremarkable. No enlarged lymph nodes. BLADDER: Urinary bladder is moderately distended with right UVJ calculus as described above. Mural calcification is questioned posteriorly versus dependent sludge/tiny calculi. REPRODUCTIVE: Enlarged prostate gland. BONES: No acute fracture. OTHER FINDINGS: None. IMPRESSION: Moderate severe right hydroureteronephrosis caused by a 6.8 minimally 6.0 mm calculus obstructing the right UVJ. Multiple intrarenal calculi identified bilaterally which are predominate punctate at the right side though a 6 mm calculus noted at the lower pole right kidney. A partial staghorn calculus is noted at the left kidney without obstructive uropathy. 6.8 cm upper pole right renal cyst, seen mildly complex by ultrasound performed 10/02/2017. Interval cholecystectomy. Enlarged prostate gland.
[2017-10-03 16:26] VITALS: RESP 18
[2017-10-03] MEDS ORDERED: Bupivacaine 0.5% Inj(30mL) ONE (16:48)
--- NOTE | 2017-10-03 18:41 | PN ---
DATE: 10/03/2017 SUBJECTIVE: The patient is seen sitting in chair. He is awake, he is alert, he is comfortable. He is in no distress. PHYSICAL EXAMINATION: GENERAL: Elderly male sitting in chair. VITAL SIGNS: Blood pressure 105/63, heart rate 73, respiratory rate 18, temperature 98.7. HEENT: Normocephalic, atraumatic. NECK: Supple, no JVD. LUNGS: Bilateral equal air entry, bilateral equal expansion. CARDIAC: S1 and S2, regular rate and rhythm, no murmur, no rub. ABDOMEN: Soft, nondistended, nontender, bowel sounds present. EXTREMITIES: No lower extremity edema. INTAKE AND OUTPUT: 1980/950 LABORATORY DATA: WBC 9, hemoglobin 14.4, hematocrit 43, and platelets 239. Sodium 144, potassium 4.6, chloride 109, CO2 of 22. BUN 52, creatinine 3.1. Glucose 115. Calcium 8.7, phosphorus 4, magnesium 2.4. CT of the abdomen and pelvis: Moderate severe right hydroureteronephrosis caused by 6.8 mm calculus obstructing the right UVJ, multiple intrarenal calculi, 6 mm calculus noted in the lower right pole, enlarged prostate gland. CURRENT MEDICATIONS: DuoNeb, Ecotrin, Flomax, Imdur 30, Lipitor 40, Lopressor 25 b.i.d., Neurontin 100, amlodipine 2.5, Plavix, Protonix, half-normal saline at 80, Spiriva, Xanax. ASSESSMENT: 1. Acute kidney injury superimposed on chronic kidney disease stage 4, resolving acute kidney injury. 2. Hypertension. 3. Coronary artery disease. 4. History of acute interstitial nephritis requiring dialysis 4 years ago. PLAN: 1. Continue hypotonic IV fluids. 2. Severe right hydronephrosis, urology followup. 3. Obstructing stone. 4. Avoid nephrotoxins. Savannah Quinonez MD
[2017-10-04] MEDS: Albuterol-Ipratrop 3 mg / 0.5 (3 ml) UD IH SCH ×3 (01:03→14:04)
[2017-10-04] MEDS: Pantoprazole 20 mg EC Tab PO SCH (05:36)
--- NOTE | 2017-10-04 06:08 | CP.PCM.PN ---
Subjective - Date & Time of Evaluation Date of Evaluation: 10/04/17 Time of Evaluation: 06:50 - Subjective Subjective: Seen and examined by me and Dr. Jason Eduardo for consult and follow up: Cardiac evaluation, history of coronary artery disease, post multiple stents, history of AICD.hypertension, COPD, history of interstitial nephritis with dialysis. denies chest pain or shortness of breath, admitted due to altered mental status due to acute kidney injury. Subjective: sleeping but easily awaken, denies chest pain or shortness of breath ,feels good Objective - Vital Signs/Intake and Output Vital Signs (last 24 hours): Temp Pulse Resp BP Pulse Ox 98.7 F 73 18 105/63 98 10/03/17 16:00 10/03/17 17:16 10/03/17 16:00 10/03/17 17:16 10/03/17 16:00 Intake and Output: 10/03/17 10/04/17 18:59 06:59 Intake Total 2820 660 Output Total 700 950 Balance 2120 -290 - Medications Medications: Current Medications Albuterol/Ipratropium (Duoneb 3 Mg/0.5 Mg (3 Ml) Ud) 3 ml IH [id number] [facility] Last Admin: 10/04/17 01:03 Dose: 3 ml Alprazolam (Xanax) 0.5 mg PO DAILY PRN; Protocol PRN Reason: Anxiety Amlodipine Besylate (Norvasc) 2.5 mg PO DAILY [facility] Last Admin: 10/03/17 09:41 Dose: 2.5 mg Aspirin (Ecotrin) 81 mg PO DAILY [facility] Last Admin: 10/03/17 09:40 Dose: 81 mg Atorvastatin Calcium (Lipitor) 40 mg PO DAILY [facility] Last Admin: 10/03/17 09:40 Dose: 40 mg Clopidogrel Bisulfate (Plavix) 75 mg PO DAILY [facility] Last Admin: 10/03/17 09:40 Dose: 75 mg Gabapentin (Neurontin) 100 mg PO HS [facility] PRN Reason: Protocol Last Admin: 10/03/17 21:33 Dose: 100 mg Sodium Chloride (Sodium Chloride 0.45%) 1,000 mls @ 80 mls/hr IV .[id number] [facility] Last Admin: 10/03/17 21:34 Dose: 80 mls/hr Isosorbide Mononitrate (Imdur Er) 30 mg PO DAILY [facility] Last Admin: 10/03/17 09:40 Dose: 30 mg Metoprolol Tartrate (Lopressor) 25 mg PO BID [facility] Last Admin: 10/03/17 17:16 Dose: Not Given Pantoprazole Sodium (Protonix Ec Tab) 20 mg PO 0600 [facility] Last Admin: 10/04/17 05:36 Dose: 20 mg Tamsulosin HCl (Flomax) 0.4 mg PO DAILY [facility] Last Admin: 10/03/17 09:40 Dose: 0.4 mg Tiotropium [place] (Spiriva) 18 mcg IH DAILY [facility] Last Admin: 10/03/17 09:40 Dose: 18 mcg - Labs Labs: 10/03/17 05:30 10/03/17 05:30 PT 15.3 SECONDS (9.4-12.5) H 10/01/17 11:20 INR 1.32 (0.93-1.08) H 10/01/17 11:20 APTT 29.0 Seconds (25.1-36.5) 10/01/17 11:20 - Constitutional Appears: No Acute Distress - Eye Exam Eye Exam: Normal appearance Pupil Exam: NORMAL ACCOMODATION - ENT Exam ENT Exam: Mucous Membranes Moist, Normal Exam - Respiratory Exam Respiratory Exam: Clear to Ausculation Bilateral, NORMAL BREATHING PATTERN - Cardiovascular Exam Cardiovascular Exam: REGULAR RHYTHM, +S1, +S2 - GI/Abdominal Exam GI & Abdominal Exam: Soft, Normal Bowel Sounds - Extremities Exam Extremities Exam: Full ROM, Normal Capillary Refill - Neurological Exam Neurological Exam: Alert, Awake, Oriented x3 - Psychiatric Exam Psychiatric exam: Normal Affect, Normal Mood - Skin Skin Exam: Intact, Normal Color, Warm Assessment and Plan - Assessment and Plan (Free Text) Assessment: IMPRESSION: 87 year old Male, admitted due to altered mental status due to acute kidney injury, history of coronary artery disease, post multiple stents, history of AICD [address] Burks at [facility], hypertension, hyperlipidemia, moderate aortic stenosis, COPD, history of interstitial nephritis with dialysis. denies chest pain or shortness of breath, Plan: Stable cardiac status Heart rate and blood pressure stable Once renal status improve/ stabilized, will recommend /refer for TAVR for severe aortic stenosis On Norvasc 2.5 mg daily, ASA 81 mg daily,Lipitor 40 mg daily, Plavix 75 mg daily, Imdur ER 30 mg daily, Lopressor 25 mg BID Continue current medications Continue current treatment BUN and creatinine still elevated , Renal on consult Will follow up Plan and treatment discussed with Dr. Gomez
[2017-10-04 06:28] LABS: BASO # 0.03 K/mm3 (0.0-2.0); BASO % 0.3 % (0.0-3.0); EOS # 0.6 (0.0-0.7); EOS % 6.5 % (1.5-5.0); GRAN # 5.62 (1.4-6.5); LYMPH # 1.3 (1.2-3.4); LYMPH % 14.6 % (22.0-35.0); MEAN CELL VOLUME 90.6 fl (80.0-105.0); MEAN CORPUSCULAR HGB CONC 33.2 g/dl (31.0-37.0); MEAN PLATELET VOLUME 10.5 fl (7.0-11.0); MONO # 1.2 (0.1-0.6); MONO % 13.6 % (1.0-6.0); RBC 4.66 10^6/uL (3.5-6.1); RED CELL DISTRIBUTION WIDTH 13.4 % (11.5-14.5); WHITE BLOOD COUNT 8.7 10^3/ul (4.5-11.0)
[2017-10-04 06:54] LABS: CALCIUM 8.8 mg/dL (8.4-10.5)
--- NOTE | 2017-10-04 08:10 | CP.PCM.PN ---
Subjective - Date & Time of Evaluation Date of Evaluation: 10/04/17 Time of Evaluation: 07:45 - Subjective Subjective: Patient is seen this morning. He is complaining of cough and nasal congestion. Objective - Vital Signs/Intake and Output Vital Signs (last 24 hours): Temp Pulse Resp BP Pulse Ox 98.7 F 73 18 105/63 98 10/03/17 16:00 10/03/17 17:16 10/03/17 16:00 10/03/17 17:16 10/03/17 16:00 Intake and Output: 10/04/17 10/04/17 06:59 18:59 Intake Total 1800 Output Total 950 Balance 850 - Medications Medications: Current Medications Albuterol/Ipratropium (Duoneb 3 Mg/0.5 Mg (3 Ml) Ud) 3 ml IH [id number] [facility] Last Admin: 10/04/17 07:44 Dose: 3 ml Alprazolam (Xanax) 0.5 mg PO DAILY PRN; Protocol PRN Reason: Anxiety Amlodipine Besylate (Norvasc) 2.5 mg PO DAILY [facility] Last Admin: 10/03/17 09:41 Dose: 2.5 mg Aspirin (Ecotrin) 81 mg PO DAILY [facility] Last Admin: 10/03/17 09:40 Dose: 81 mg Atorvastatin Calcium (Lipitor) 40 mg PO DAILY [facility] Last Admin: 10/03/17 09:40 Dose: 40 mg Azithromycin (Zithromax) 500 mg PO DAILY [facility] PRN Reason: Protocol Clopidogrel Bisulfate (Plavix) 75 mg PO DAILY [facility] Last Admin: 10/03/17 09:40 Dose: 75 mg Gabapentin (Neurontin) 100 mg PO [facility] PRN Reason: Protocol Last Admin: 10/03/17 21:33 Dose: 100 mg Sodium Chloride (Sodium Chloride 0.45%) 1,000 mls @ 80 mls/hr IV .[id number] [facility] Last Admin: 10/03/17 21:34 Dose: 80 mls/hr Isosorbide Mononitrate (Imdur Er) 30 mg PO DAILY [facility] Last Admin: 10/03/17 09:40 Dose: 30 mg Metoprolol Tartrate (Lopressor) 25 mg PO BID [facility] Last Admin: 10/03/17 17:16 Dose: Not Given Pantoprazole Sodium (Protonix Ec Tab) 20 mg PO 0600 [facility] Last Admin: 10/04/17 05:36 Dose: 20 mg Tamsulosin HCl (Flomax) 0.4 mg PO DAILY [facility] Last Admin: 10/03/17 09:40 Dose: 0.4 mg Tiotropium [place] (Spiriva) 18 mcg IH DAILY [facility] Last Admin: 10/03/17 09:40 Dose: 18 mcg - Labs Labs: 10/04/17 05:30 10/04/17 05:30 PT 15.3 SECONDS (9.4-12.5) H 10/01/17 11:20 INR 1.32 (0.93-1.08) H 10/01/17 11:20 APTT 29.0 Seconds (25.1-36.5) 10/01/17 11:20 - Constitutional Appears: No Acute Distress - Head Exam Head Exam: ATRAUMATIC, NORMOCEPHALIC - Respiratory Exam Respiratory Exam: Clear to Ausculation Bilateral, NORMAL BREATHING PATTERN - Cardiovascular Exam Cardiovascular Exam: REGULAR RHYTHM, +S1, +S2 - GI/Abdominal Exam GI & Abdominal Exam: Soft, Normal Bowel Sounds. absent: Tenderness - Neurological Exam Neurological Exam: Alert, Awake, Oriented x3 Assessment and Plan - Assessment and Plan (Free Text) Assessment: Acute on chronic renal insufficiency - Patient is on IV fluids and BUN/ creatinine are trending downward. CT abd/pelvis shows moderate severe right hydrouretronephrosis caused by a 6.0 mm calculus obstructing the right UVJ. There are also multiple intrarenal calculi. Right renal cyst has increased in size and enlarged prostate gland. We will await recommendation of Dr. Moreira, urologist and Dr. Quinonez or Dr. Blum, nephrologists, regarding the obstructing stone. URI - will start Zithromax. We will order sputum culture in case patient brings up phlegm. Altered mental state - Patient is oriented times 3. He denies hallucinations. He has been taken off nortriptylline and neurontin has been reduced to once daily. EEG, however, shows bilateral cerebral dysfunction with mild diffuse slowing throughout. BPH - continue flomax ASHD/HTN/Severe Aortic stenosis - continue ASA, Plavix, Norvasc, Metoprolol, Imdur. COPD - continue Spiriva and Duoneb
[2017-10-04 08:33] VITALS: BP 114/60; PULSE 61; TEMP 98.1; O2SAT 96
--- NOTE | 2017-10-04 08:46 | CON ---
DATE: 10/03/2017 GENITOURINARY CONSULTATION CHIEF COMPLAINT: Altered mental status. HISTORY OF PRESENT ILLNESS: This is an 87-year-old male with multiple medical issues including chronic kidney disease, hypertension, COPD, who presented to the ER with altered mental status. Patient was apparently having hallucinations and not answering questions appropriately. Blood work showed that his renal function had worsened. He had previously been on dialysis, but this was stopped. Patient has been treated. He is currently doing much better. His mental status has improved. He is awake, alert, and answering questions. He denies any current chest pains or shortness of breath. He denies any dysuria, urinary frequency, urgency, or gross hematuria. He denies any flank pain, fever, or chills. During his admission, he was found to have kidney stones with hydronephrosis and a urology consultation was requested. PAST MEDICAL HISTORY: Significant for altered mental status, COPD, coronary artery disease, chronic kidney disease, hyperlipidemia, hypertension. MEDICATIONS: Currently include DuoNeb, aspirin, Imdur, Lipitor, Lopressor, Neurontin, Norvasc, Plavix, Protonix, Spiriva and Xanax. ALLERGIES: NO KNOWN DRUG ALLERGIES. FAMILY HISTORY: Noncontributory. SOCIAL HISTORY: Denies smoking or EtOH use. REVIEW OF SYSTEMS: Patient is awake, alert, answering questions. He currently reports feeling some weakness and tiredness. He does report some difficulty ambulating. For urology, he denies any dysuria, frequency, urgency, or gross hematuria. He denies any flank pain, fever, or chills. Other systems are negative. PHYSICAL EXAMINATION: GENERAL: Patient is awake, alert, in no acute distress. VITAL SIGNS: He is afebrile. Temperature of 98.2, pulse of 60, BP 121/59, respirations 16. NECK: Supple. There is no adenopathy or mass. CHEST: Reveals a normal inspiratory effort. CARDIAC: Shows positive S1, S2. There is mild peripheral edema noted. ABDOMEN: Soft, nontender, nondistended. There is no hepatosplenomegaly. There is no costovertebral angle tenderness. GENITOURINARY: Phallus is normal. Scrotum is normal. Testes are bilaterally descended, nontender. No masses. Epididymides are normal. EXTREMITIES: There is no cyanosis. There is mild edema. LABORATORY DATA: WBC count 9.2, creatinine 3.1, down from 4 on admission. Urinalysis showed 0 to 2 wbc, 10 to 15 rbc, negative for nitrites. On 10/01, hemoglobin 14.4. No urine culture was done. On radiologic exam, patient had a renal ultrasound done on 10/01, which showed multiple echogenic foci with a distended collecting system. None of the stones is larger than 1 cm. There was moderate hydronephrosis of the right kidney. Left kidney, there was a solitary 1 cm mid pole calculus with no hydronephrosis. IMPRESSION AND PLAN: This is an 87-year-old male admitted with altered mental status. Patient has chronic kidney disease, which appears to be improving with hydration. He does have hydronephrosis noted on ultrasound and bilateral renal calculi. The plan for now would be to obtain a CT scan of the abdomen and pelvis without contrast to assess for further stone disease. Clinically, patient is not complaining of symptoms of colic. I will review the CT scan when it is done and make further recommendations regarding the hydronephrosis with renal insufficiency. Thank you for allowing me to participate in the care of this patient. We will follow him with you. Blake Moreira MD
[2017-10-04] MEDS: Tiotropium 18 mcg Cap For Inhalation IH SCH (09:55)
--- NOTE | 2017-10-04 20:17 | PN ---
DATE: 10/04/2017 SUBJECTIVE: Patient is seen sitting in bed. He is awake, he is alert, he is comfortable. He does not appear to be in any kind of distress. PHYSICAL EXAMINATION: GENERAL: Elderly male, sitting in bed. VITAL SIGNS: Blood pressure 114/60, heart rate 61, respiratory rate 18, temperature 98.1. HEENT: Normocephalic, atraumatic, positive pallor. NECK: Supple, no JVD. LUNGS: Bilateral equal air entry, bilateral equal expansion, no rales. CARDIAC: S1 and S2. Regular rate and rhythm, no murmur, no rub. ABDOMEN: Obese, distended, soft, nontender, bowel sounds present. EXTREMITIES: No lower extremity edema. INTAKE AND OUTPUT: 4620/1650. LABORATORY DATA: WBC 8.7, hemoglobin 14, hematocrit 42, platelets 239. Sodium 146, potassium 4.8, chloride 112, CO2 20, BUN 48, creatinine 2.7, glucose 104, calcium 8.8, phosphorus 3.2, magnesium 2.1. MEDICATIONS: List reviewed. ASSESSMENT: 1. Acute kidney injury superimposed on chronic kidney disease, stage III, resolving acute components. 2. Right hydroureter, hydronephrosis, obstructing stone. 3. Prerenal azotemia. 4. Hypertension. 5. Coronary artery disease. 6. History of acute kidney injury in the past. PLAN 1. Case discussed with nursing staff, patient at bedside. Plan is for outpatient cystoscopy. No objection to discharge. 2. Discontinue IV fluids. 3. Continue current antihypertensive regimen. 4. Outpatient followup with Dr. Blum. Savannah Quinonez MD
[2017-10-05] MEDS ORDERED: Amoxicillin-Clav 500-125 mg Tab PO SCH (06:00)
--- NOTE | 2017-10-05 23:30 | DS ---
HISTORY OF PRESENT ILLNESS: This is an 87-year-old male with history of hypertension, coronary artery disease, COPD, chronic kidney disease, who presented to the emergency room with altered mental state. The patient has been having hallucinations and was saying strange things according to the daughter. Blood work was done in the office, which showed his creatinine has increased from baseline and the patient was advised to come to the emergency room. In the emergency room, his potassium was 5.2, BUN 66 and creatinine 4. A week prior, his creatinine was 2.5. HOSPITAL COURSE: With IV hydration, the BUN and creatinine improved to 48 and 2.7. CAT scan of the abdomen and pelvis was done, which showed an obstructing stone in the right ureterovesical junction. There are also multiple intrarenal calculi and a right renal cyst, which was larger in size in comparison to the ultrasonic view of 6.8 cm as well as enlarged prostate gland was seen on CAT scan. The patient was seen by Dr. Moreira, the urologist; Dr. Blum and Dr. Quinonez who were his nephrologists and he was advised to go for cystoscopy with stent placement. This will be done as an outpatient. The patient is on Plavix. We will hold the Plavix until the procedure is done. The procedure should be scheduled for next on Saturday. DISCHARGE DIAGNOSES: Acute on chronic kidney disease, obstructing stone in the right ureterovesical junction, renal cyst, hypertension, atherosclerotic heart disease, chronic obstructive pulmonary disease, benign prostatic hypertrophy, neuropathy. DISCHARGE MEDICATIONS: Augmentin 3 times a day for 5 days, Flomax 0.4 mg daily, Lasix 40 mg daily which will be held, Imdur 30 mg daily, Lipitor 40 mg daily, Lopressor 25 mg twice a day, Neurontin 100 mg at night, Norvasc 2.5 mg daily, omeprazole 20 mg daily, Spiriva 18 mcg daily, Symbicort 1 puff twice a day and Xanax 0.5 mg daily as needed for anxiety. Augmentin is for upper respiratory infection and the patient was complaining of cough and nasal congestion on the day of discharge. FOLLOWUP: The patient will follow up with Dr. Blum as an outpatient. He will follow up with Dr. Moreira for a cystoscopy with stent placement. Za Barrera MD
== END 2017-10-04 18:21 | disposition home or self-care (01) | DRG 682 ==
LOC: ED 10:25 → ERH 12:04 → 3RNO 16:03
PROVIDERS: ADMIT Internal Medicine; ATTEND Internal Medicine
PROC: 3E0F7GC Introduction of Other Therapeutic Substance into Respiratory Tract, Via Natural or Artificial Opening (ICD-10-PCS; principal; 2017-10-01)
DX: N17.9 Acute kidney failure, unspecified (principal); G93.41 Metabolic encephalopathy; I25.10 Atherosclerotic heart disease of native coronary artery without angina pectoris; N40.0 Benign prostatic hyperplasia without lower urinary tract symptoms; J44.9 Chronic obstructive pulmonary disease, unspecified; E87.5 Hyperkalemia; I08.0 Rheumatic disorders of both mitral and aortic valves; N13.2 Hydronephrosis with renal and ureteral calculous obstruction; N18.4 Chronic kidney disease, stage 4 (severe); I12.9 Hypertensive chronic kidney disease with stage 1 through stage 4 chronic kidney disease, or unspecified chronic kidney disease; G62.9 Polyneuropathy, unspecified; G56.00 Carpal tunnel syndrome, unspecified upper limb; N28.1 Cyst of kidney, acquired; K29.70 Gastritis, unspecified, without bleeding; G47.00 Insomnia, unspecified; E78.5 Hyperlipidemia, unspecified; Z95.5 Presence of coronary angioplasty implant and graft; Z95.810 Presence of automatic (implantable) cardiac defibrillator; Z87.891 Personal history of nicotine dependence

== ENCOUNTER 2017-10-09 06:24 | Day surgery (SDC) | payer MEDICARE ==
[2017-10-08 07:55] VITALS: BMI 28.4
[2017-10-09] MEDS ORDERED: cefTRIAXone (Rocephin) 1 gm Inj ONE (07:21)
[2017-10-09] MEDS ORDERED: Iohexol 240 (50 ml) ONE (07:21)
[2017-10-09] MEDS ORDERED: Esmolol 100 mg/10ml Inj IV ONE (08:02)
[2017-10-09] MEDS ORDERED: Propofol 10 mg/ml Inj (20 ML) ONE (08:02)
[2017-10-09] MEDS ORDERED: Phenylephrine 10 mg/ml Inj ONE (08:02)
[2017-10-09] MEDS ORDERED: Etomidate 20 mg/10ml Inj IV ONE (08:03)
[2017-10-09] MEDS ORDERED: Gentamicin 80 mg/2mL Inj. ONE (08:38)
[2017-10-09] MEDS ORDERED: Lidocaine 2% Jelly (Uro-Jet) ONE (09:07)
[2017-10-09] MEDS ORDERED: Lactated Ringer's 1,000 ML IV SCH (09:30)
[2017-10-09 09:44] VITALS: TEMP 97.6
--- NOTE | 2017-10-09 09:55 | RAD ---
PROCEDURE: Retrograde pyelogram HISTORY: BLADDER STONE COMPARISON: TECHNIQUE: Fluoroscopy was provided in the operating room. 34.2 seconds of fluoro time. Cumulative dose 9.84 mGy. Fifteen images were submitted FINDINGS: The study shows opacification of the right ureter and renal collecting system with placement of a wire and ureteroscopy IMPRESSION: As above
[2017-10-09 10:11] VITALS: BP 111/60; PULSE 66; RESP 20; O2SAT 95
--- NOTE | 2017-10-10 08:21 | OP ---
PROCEDURE DATE: 10/09/2017 PREOPERATIVE DIAGNOSIS Right ureteral calculus. POSTOPERATIVE DIAGNOSES: Bladder stone, bilateral renal calculi. PROCEDURES: Cystoscopy, right retrograde pyelogram, right ureteroscopy, vesicolithotripsy with extraction of bladder calculi. ATTENDING SURGEON: Blake Moreira MD ANESTHESIA: General. SPECIMENS: Bladder stone, was sent to Pathology. DRAINS: There were none. COMPLICATIONS: There were none. OPERATIVE FINDINGS: After informed consent was obtained, the patient was taken to the operating room and placed on the operating table. Anesthesia was administered. The patient was then placed in a dorsal lithotomy position, and prepped and draped in the usual sterile fashion. The patient received intravenous antibiotics prior to start of the procedure. A 22-[place]ian cystoscope was then placed in the patient's urethra and advanced proximally under direct vision until the bladder was entered. A full survey inspection of bladder was then performed, which revealed multiple tiny stones and one large free-floating bladder calculus. Both ureteral orifices were visualized and appeared within normal limits. Fluoroscopy was then performed. There was no obvious calculus noted in the region of the right ureter. There were questionable densities overlying the right and also left kidney. At this point, a [place] catheter was introduced through the cystoscope and guided into the right ureteral orifice. Right retrograde pyelogram was performed. There appeared to be resolution of the hydronephrosis. There was a question of a mobile filling defect in the distal right ureter. At this point, a sensor wire was obtained. It was passed through the [place] catheter and advanced up the ureter under fluoroscopic guidance until it coiled in the upper collecting system. The cystoscope and ureteral catheter were then removed leaving the wire in place. An 8-[place] semi-rigid ureteroscope was then obtained. It was passed under direct vision into the bladder. Under direct vision, it was able to be guided easily into the right orifice and advanced proximally under direct vision. There were no stones, tumors, or other ureteral abnormalities noted. The scope was able to be easily passed into the renal pelvis. The ureter was mild to moderately dilated. There were no stones or abnormalities noted in the renal pelvis. At this point, the ureteroscope was withdrawn under direct vision. Again no stones or abnormalities were noted in the right ureter. The scope was then withdrawn. The cystoscope was then re-passed. The guidewire was then removed. A laser fiber was then obtained and lithotripsy of the larger bladder calculus was performed as the stone was too large to be irrigated out of the scope. The stone was able to be fragmented into a few smaller pieces which could then be irrigated out of the scope. The pieces of stone were sent to Pathology as specimen. A final inspection was then made. There were no bladder tumors or other abnormalities noted. There was no active bleeding from the bladder and no remaining pieces of stone in the bladder. At this point, the procedure was complete. The bladder was drained. The cystoscope was removed. Of note, the prostate was moderately enlarged and occlusive appearing in nature with some hypervascularity. The patient tolerated the procedure well. He was returned to the supine position and taken to the recovery room awake in stable condition. Blake Moreira MD
== END 2017-10-09 11:50 | disposition home or self-care (01) ==
LOC: SDS 06:24
PROVIDERS: ATTEND Urology
DX: N20.0 Calculus of kidney (principal); N21.0 Calculus in bladder; I10 Essential (primary) hypertension; I25.10 Atherosclerotic heart disease of native coronary artery without angina pectoris; I25.2 Old myocardial infarction; I49.9 Cardiac arrhythmia, unspecified; J45.909 Unspecified asthma, uncomplicated; J43.9 Emphysema, unspecified; N28.9 Disorder of kidney and ureter, unspecified; Z95.5 Presence of coronary angioplasty implant and graft; Z95.0 Presence of cardiac pacemaker; Z90.49 Acquired absence of other specified parts of digestive tract
CPT/HCPCS: 52317; 52351; 74420; 88300; J1580; J2704; J3010; J7120; Q9966

== ENCOUNTER 2018-01-03 18:41 | Emergency (ER) | payer MEDICARE ==
[2018-01-03 18:42] VITALS: BMI 28.2
[2018-01-03 19:00] VITALS: TEMP 97.5
--- NOTE | 2018-01-03 19:55 | ED PDOC ---
Arrival/HPI - General Chief Complaint: Back Pain Time Seen by Provider: 01/03/18 19:42 Historian: Patient - History of Present Illness Narrative History of Present Illness (Text): 01/03/18 19:55 A 87 year old male, whose past medical history includes COPD, CAD, and diverticulitis, presents to the emergency department complaining of left hip and left thigh pain for past several days. Patient reports he had stress test performed, and afterwards began experiencing symptoms. Has taken no medications for pain. Patient denies any trauma/fall, numbness/weakness, or any other complaints at this time. No PMD Past Medical History - Provider Review Nursing Documentation Reviewed: Yes - Infectious Disease Hx of Infectious Diseases: None - Tetanus Immunization Tetanus Immunization: Unknown - Cardiac Hx Hypertension: Yes Hx Pacemaker: Yes (and Defib) - Pulmonary Hx Chronic Obstructive Pulmonary Disease (COPD): Yes - Neurological Hx Paralysis: No - HEENT Hx HEENT Disorder: Yes (6 INJECTIONS TO EYE (L).RIGHT EYE BLURRY VISION) Hx Macular Degeneration: Yes Other/Comment: Right eye problem/vision limited - Renal Hx Renal Disorder: Yes Hx Dialysis: (X12 TIMES COMPLETED AND REVERSED.) Hx Renal Failure: Yes Other/Comment: Kidney problems - Endocrine/Metabolic Hx Endocrine Disorders: No - Integumentary Hx Dermatological Disorder: No - Musculoskeletal/Rheumatological Hx Musculoskeletal Disorders: Yes Hx Arthritis: Yes - Gastrointestinal Hx Gastrointestinal Disorders: Yes Hx Diverticulitis: Yes Hx Gastroesophageal Reflux: Yes - Genitourinary/Gynecological Hx Genitourinary Disorders: Yes (ACUTE RENAL FAILURE WITH HD(NEW)) - Psychiatric Hx Emotional Abuse: No Hx Physical Abuse: No Hx Substance Use: No - Surgical History Hx Cardiac Catheterization: Yes Hx Cholecystectomy: Yes Hx Coronary Stent: Yes (x3) - Anesthesia Hx Anesthesia Reactions: No Hx Malignant Hyperthermia: No - Suicidal Assessment Feels Threatened In Home Enviroment: No Family/Social History - Physician Review Nursing Documentation Reviewed: Yes Family/Social History: No Known Family HX Smoking Status: Former Smoker Hx Alcohol Use: No Hx Substance Use: No Hx Substance Use Treatment: No Allergies/Home Meds Allergies/Adverse Reactions: Allergies No Known Allergies Allergy (Verified 01/03/18 19:04) Home Medications: Home Meds Medication Instructions Recorded Confirmed Tiotropium [Spiriva] 18 mcg IH DAILY 01/15/13 12/30/17 Alprazolam [Xanax] 0.5 mg PO DAILY PRN 10/24/15 12/30/17 Amlodipine Besylate [Norvasc] 2.5 mg PO DAILY 10/24/15 12/30/17 Atorvastatin [Lipitor] 40 mg PO DAILY 10/24/15 12/30/17 Budesonide/Formoterol Fumarate 1 puff INH BID 10/24/15 12/30/17 [Symbicort 80-4.5 Mcg Inhaler] Gabapentin [Neurontin] 100 mg PO HS 10/24/15 12/30/17 Calcium Carbonate/Vitamin D3 1 tab PO DAILY 10/01/17 12/30/17 [Caltrate 600 Plus D3 Tablet] Aspirin [Ecotrin] 81 mg PO DAILY 10/08/17 12/30/17 Clopidogrel [Plavix] 75 mg PO DAILY 10/08/17 12/30/17 Review of Systems - Physician Review All systems were reviewed & negative as marked: Yes - Review of Systems Constitutional: absent: Other (no fall/trauma) Musculoskeletal: Other (left hip/thigh pain) Neurological: absent: Focal Weakness (no numbness/weakness) Physical Exam Vital Signs Reviewed: Yes Vital Signs Temp Pulse Resp BP Pulse Ox 01/03/18 20:38 97.5 F L 78 16 149/82 99 01/03/18 18:57 97.5 F L 80 18 157/82 H 97 Temperature: Afebrile Blood Pressure: Normal Pulse: Regular Respiratory Rate: Normal Appearance: Positive for: Well-Appearing, Non-Toxic, Comfortable Pain Distress: None Mental Status: Positive for: Alert and Oriented X 3 - Systems Exam Head: Present: Atraumatic, Normocephalic Pupils: Present: PERRL Extroacular Muscles: Present: EOMI Conjunctiva: Present: Normal Mouth: Present: Moist Mucous Membranes Neck: Present: Normal Range of Motion Respiratory/Chest: Present: Clear to Auscultation, Good Air Exchange. No: Respiratory Distress, Accessory Muscle Use Cardiovascular: Present: Regular Rate and Rhythm, Normal S1, S2. No: Murmurs Abdomen: No: Tenderness, Distention, Peritoneal Signs Back: Present: Normal Inspection Upper Extremity: Present: Normal Inspection. No: Cyanosis, Edema Lower Extremity: Present: Normal Inspection, Other (negative straight leg test) . No: Edema Neurological: Present: GCS=15, CN II-XII Intact, Speech Normal Skin: Present: Warm, Dry, Normal Color. No: Rashes Psychiatric: Present: Alert, Oriented x 3, Normal Insight, Normal Concentration Medical Decision Making ED Course and Treatment: 01/03/18 19:57 Impression: 87 year old male with left hip/thigh pain. Plan: -- Hip CT -- Lumbar Spinal X-Ray -- Tylenol -- Reassess and disposition Progress Notes: - RAD Interpretation Radiology Orders: 01/03/18 19:42 HIP WITHOUT CONTRAST LEFT [CT] Stat LS SPINE AP/LAT [RAD] Stat - Medication Orders Current Medication Orders: Discontinued Medications Acetaminophen (Tylenol 325mg Tab) 975 mg PO STAT STA Stop: 01/03/18 19:59 Last Admin: 01/03/18 20:51 Dose: 975 mg MAR Pain/Vitals Document 01/03/18 20:51 SH (Rec: 01/03/18 20:51 SH [id number] Pain Reassessment Is This A Pain ReAssessment? No Sleep Is patient sleeping during reassessment? No Presence of Pain Presence of Pain Yes Pain Scale Used Pain Scale Used Numeric Cyclobenzaprine HCl (Flexeril) 10 mg PO STAT STA Stop: 01/03/18 19:46 Last Admin: 01/03/18 19:54 Dose: 10 mg Ibuprofen (Motrin Tab) 600 mg PO STAT STA Stop: 01/03/18 19:45 Last Admin: 01/03/18 19:54 Dose: 600 mg MAR Pain/Vitals Document 01/03/18 19:54 SF (Rec: 01/03/18 19:54 SF [facility] Pain Reassessment Is This A Pain ReAssessment? Yes Sleep Is patient sleeping during reassessment? No Presence of Pain Presence of Pain Yes Pain Scale Used Pain Scale Used Numeric Location Left, Right or Bilateral Left Upper or Lower Lower Pain Location Body Site Back Description Constant - Scribe Statement The provider has reviewed the documentation as recorded by the Nelson Ortega Provider Scribe Attestation: All medical record entries made by the Scribe were at my direction and personally dictated by me. I have reviewed the chart and agree that the record accurately reflects my personal performance of the history, physical exam, medical decision making, and the department course for this patient. I have also personally directed, reviewed, and agree with the discharge instructions and disposition. Disposition/Present on Arrival - Present on Arrival Any Indicators Present on Arrival: No History of DVT/PE: No History of Uncontrolled Diabetes: No Urinary Catheter: No History of Decub. Ulcer: No History Surgical Site Infection Following: None - Disposition Have Diagnosis and Disposition been Completed?: Yes Diagnosis: Sciatica Disposition: HOME/ ROUTINE Disposition Time: 21:20 Patient Plan: Discharge Condition: GOOD Discharge Instructions (ExitCare): Sciatica Prescriptions: Acetaminophen [Tylenol 325mg tab] 650 mg PO Q4 #20 tab Cyclobenzaprine [Cyclobenzaprine HCl] 10 mg PO QPM 5 Days #5 tab Forms: [employer] (Belarusian)
[2018-01-03 20:38] VITALS: BP 149/82; PULSE 78
[2018-01-03 22:00] VITALS: RESP 18; O2SAT 98
--- NOTE | 2018-01-04 12:35 | CT ---
Date of service: 01/03/2018 PROCEDURE: CT of the Left Hip. HISTORY: hip pain and back pain COMPARISON: None available. TECHNIQUE: Contiguous axial images of the left hip were obtained. Coronal and sagittal reformats were generated. Contrast dose: 358.[address] exam was performed using one or more of the following dose reduction techniques: Automated exposure control, adjustment of the mA and/or kV according to patient size, and/or use of iterative reconstruction technique. FINDINGS: BONES: No acute displaced fracture. There is a well-defined radiolucent lesion in the proximal metaphysis of the femur. There is also diffuse bone demineralization LEFT HIP JOINT: Mild degenerative osteoarthrosis. No dislocation. SOFT TISSUES: The periarticular soft tissues are normal. IMPRESSION: Radiolucent lesion in the proximal metaphysis of the left femur. No evidence for cortical destruction or pathologic fracture. MRI of the femur without and with intravenous contrast on a nonemergent basis is recommended for further evaluation. A preliminary report was provided by [employer].
--- NOTE | 2018-01-04 13:41 | RAD ---
Date of service: 01/03/2018 PROCEDURE: Radiographs of the Lumbar Spine. HISTORY: hip pain COMPARISON: No prior. FINDINGS: BONES: There is normal alignment of the lumbar vertebral bodies. There is normal lumbar lordosis. There is no acute fracture, spondylolysis or spondylolisthesis. Bone mineralization is normal. DISC SPACES: There is multilevel degenerative disc disease with anterior spurring, reduced disc heights and multilevel facet arthropathy, worse at L4-5. OTHER FINDINGS: There are no pathologic soft tissue calcifications. Both sacroiliac joints are normal. There are advanced atherosclerotic calcifications in the abdominal aorta. IMPRESSION: Multilevel degenerative disc disease, worse at L4-5. No acute fracture.
== END 2018-01-03 21:36 | disposition home or self-care (01) ==
LOC: ED 18:41
DX: M54.30 Sciatica, unspecified side (principal); I10 Essential (primary) hypertension; I25.10 Atherosclerotic heart disease of native coronary artery without angina pectoris; J44.9 Chronic obstructive pulmonary disease, unspecified; Z87.891 Personal history of nicotine dependence

== ENCOUNTER 2018-02-20 07:53 | Day surgery (SDC) | payer MEDICARE ==
[2018-02-18 08:41] VITALS: BMI 28.3
[2018-02-20 08:42] LABS: BASO # 0.03 K/mm3 (0.0-2.0); BASO % 0.4 % (0.0-3.0); EOS # 0.5 (0.0-0.7); EOS % 6.8 % (1.5-5.0); GRAN # 5.14 (1.4-6.5); HEMOGLOBIN 15.9 g/dL (14.0-18.0); LYMPH # 0.8 (1.2-3.4); LYMPH % 10.9 % (22.0-35.0); MEAN CELL VOLUME 90.5 fl (80.0-105.0); MEAN CORPUSCULAR HEMOGLOBIN 30.8 pg (25.0-35.0); MEAN PLATELET VOLUME 11.5 fl (7.0-11.0); MONO # 0.8 (0.1-0.6); MONO % 10.9 % (1.0-6.0); RBC 5.17 10^6/uL (3.5-6.1); RED CELL DISTRIBUTION WIDTH 13.1 % (11.5-14.5); WHITE BLOOD COUNT 7.2 10^3/ul (4.5-11.0)
[2018-02-20 08:53] LABS: BLOOD UREA NITROGEN 22 mg/dL (7-21); GFR NON-AFRICAN AMERICAN > 60; HDL CHOLESTEROL 34 mg/dL (29-60)
[2018-02-20 09:04] LABS: LDL CHOLESTEROL 42 mg/dL (0-129)
[2018-02-20 09:07] LABS: INR 1.23; PARTIAL THROMBOPLASTIN TIME 29.1 Seconds (25.1-36.5); PROTHROMBIN TIME 14.2 SECONDS (9.4-12.5)
[2018-02-20] MEDS ORDERED: Iodixanol 320 MG/ML 200 ML BOTTLE IV ONE (09:22)
[2018-02-20] MEDS ORDERED: Midazolam 2 MG/2 ML VIAL ONE (09:45)
--- NOTE | 2018-02-20 10:08 | HP ---
Copied To: Claudia Gomez MD Attending MD: Claudia Gomez MD REASON FOR ADMISSION: Left heart cath, possible right heart cath, abnormal stress test, history of coronary artery disease. BRIEF CLINICAL HISTORY: An 87-year-old male with past medical history significant for coronary artery disease, renal insufficiency, cardiomyopathy, hypertension, hyperlipidemia, status post AICD 7 years ago at [facility], who had abnormal stress test. The patient is scheduled for elective cardiac cath, possible angioplasty. PAST MEDICAL HISTORY: Significant for coronary artery disease, status post PTCA on 11/10/2015, history of acute kidney injury, history of mitral stenosis, history of aortic stenosis, history of moderate aortic regurgitation, [id number] mitral regurgitation, history of AICD. Recent stress test is abnormal, so the patient is scheduled for elective cardiac cath, possible angioplasty. The patient is a , goes to [facility], gets the medication from there, history of PTCA x2 five years ago and then 11/10/2015. RECENT CARDIAC WORKUP: As follows: The patient had a cardiac catheterization on 11/10/2015 where the patient underwent stenting of RPDA with RAJANI and distal RCA dated 11/10/2015. Prior to that, the patient had PTCA, was done on 07/18/2009. Cardiac catheterization most recently 11/10/2015 revealed single-vessel coronary artery disease involving ostial RCA and RPDA, patent stent in LAD that was done in 2009, preserved LV function, ejection fraction 55%, moderate 40 mm gradient across on pullback, [id number]-ih-[id number] gradient 40 mm gradient on 11/10/2015. A recent stress test dated 12/30/2017 shows abnormal myocardial perfusion study, anteroseptal and apical inferior regions suggestive of ischemia, moderate LV dysfunction, ejection fraction 29%. The patient had echocardiography done 01/28/2018 that shows not a good quality of echo, ejection fraction of 40%, yzlqgnef-pr-fehbra diastolic dysfunction, LV hypertrophy. Aortic valve shows severe aortic stenosis, valve area of 0.8 cm sq, peak gradient 50 mmHg, moderate mitral stenosis, mild aortic regurgitation, [id number] mitral regurgitation, moderate mitral stenosis, mild tricuspid regurgitation, RV systolic pressure of 40, mild pulmonary hypertension. Peak gradient across the aortic valve in 2012 is 10-12 mmHg, calculated valve area 1.5 cm. Recent cath on 11/10/2015 shows moderate aortic valve area, with peak gradient 40 mm. Now by echo peak gradient is 50 with valve area by echo is 0.8 cm sq. CURRENT MEDICATIONS: The patient is taking at home vitamin D, Spiriva, Flomax, metoprolol tartrate 25 mg b.i.d., Imdur 30 mg daily, Neurontin 100 mg daily, Plavix 75 mg daily, atorvastatin 40 mg daily, aspirin 81 mg daily, amlodipine 2.5 mg, Xanax 0.5 mg, acetaminophen 650. ALLERGIES: NO KNOWN DRUG ALLERGIES. REVIEW OF SYSTEMS: As per HPI. PHYSICAL EXAMINATION VITAL SIGNS: As follows: Height of the patient 5 feet 5 inches, weight of the patient 170 pounds, body mass index 28.3 kg/sq m. Rest of the vitals: Temperature afebrile, heart rate 80, blood pressure 130/80. HEENT: PERRLA. Extraocular muscles intact. NECK: Supple. No carotid bruit or thyromegaly. CHEST: Clear to auscultation. HEART: S1 and S2, regular. ABDOMEN: Soft. EXTREMITIES: Clubbing and cyanosis negative. IMPRESSION: An 87-year-old male with past medical history significant for valvular heart disease including mitral stenosis, aortic stenosis, mitral regurgitation, aortic regurgitation, cardiomyopathy, history of coronary artery disease, status post percutaneous transluminal coronary angioplasty of right coronary artery and RPDA, 2016, history of percutaneous transluminal coronary angioplasty of left anterior descending in 2011. Recent abnormal stress test with decreased left ventricular function, history of chronic obstructive pulmonary disease, history of hypertension, hyperlipidemia. RECOMMENDATIONS: Cardiac catheterization, left and right. Further recommendations after cardiac catheterization and we will follow with you. Thank you, Dr. Castellon for providing us the opportunity in taking care of Roshan Adames. Claudia Gomez MD
[2018-02-20] MEDS ORDERED: Sodium Chloride 0.9% 1,000 ML IV SCH (10:45)
[2018-02-20 11:01] VITALS: TEMP 97.5
--- NOTE | 2018-02-20 11:04 | CPOSTOP ---
DATE: 02/20/2018 CARDIOVASCULAR LAB POST PROCEDURE NOTE DICTATING PHYSICIAN: Claudia Gomez MD. INFORMATION TECHNOLOGY INTERNSHIP: Jessica network control technician. TYPE OF ANESTHESIA: Moderate conscious sedation. Total 2 mg of Versed, 50 of fentanyl given. PRE-PROCEDURE DIAGNOSES: Abnormal stress test, aortic stenosis, history of coronary artery disease, history of multiple stent. PROCEDURE PERFORMED: Complete left and right heart catheterization. FINDINGS: Patent stent in the LAD, patent stent in circumflex. Moderate disease in obtuse marginal with 60-70%. Moderate aortic stenosis, valve area of 1 cm2. FINAL DIAGNOSES: Nonobstructive coronary artery disease, patent stent. Moderate aortic stenosis. POST PROCEDURE CONDITION: Post procedure, the patient's condition is stable. VASCULAR ACCESS SITE: Right femoral groin. CLOSURE DEVICE: Mynx in the arterial as well as the venous access, Mynx applied. TOTAL RADIATION DOSE: 7151.3 milligray unit. TOTAL FLUORO TIME: 5.2. TOTAL CONTRAST USED: 25 mL. Claudia Gomez MD
[2018-02-20 12:15] VITALS: RESP 18
[2018-02-20 12:16] VITALS: O2SAT 98
[2018-02-20 12:17] VITALS: PULSE 60
[2018-02-20 12:30] VITALS: BP 128/62
[2018-02-20 14:52] LABS: BLOOD UREA NITROGEN 21 mg/dL (7-21); CALCIUM 8.6 mg/dL (8.4-10.5); GFR NON-AFRICAN AMERICAN > 60
[2018-02-20 14:56] LABS: BASO # 0.03 K/mm3 (0.0-2.0); BASO % 0.6 % (0.0-3.0); EOS # 0.3 (0.0-0.7); EOS % 5.5 % (1.5-5.0); GRAN # 3.22 (1.4-6.5); GRAN % 60.7 % (50.0-68.0); HEMOGLOBIN 15.4 g/dL (14.0-18.0); LYMPH # 1.1 (1.2-3.4); LYMPH % 21.3 % (22.0-35.0); MEAN CELL VOLUME 92.1 fl (80.0-105.0); MEAN CORPUSCULAR HEMOGLOBIN 30.6 pg (25.0-35.0); MEAN CORPUSCULAR HGB CONC 33.2 g/dl (31.0-37.0); MEAN PLATELET VOLUME 12.3 fl (7.0-11.0); MONO # 0.6 (0.1-0.6); MONO % 11.9 % (1.0-6.0); RBC 5.04 10^6/uL (3.5-6.1); RED CELL DISTRIBUTION WIDTH 13.1 % (11.5-14.5); WHITE BLOOD COUNT 5.3 10^3/ul (4.5-11.0)
--- NOTE | 2018-02-20 15:59 | CARD ---
APPROVED REPORT Date of service: 02/20/2018 EKG Measurement Heart [id number] OR [id number] [id number] <Conclusion> AV sequential or dual chamber electronic pacemaker
--- NOTE | 2018-02-20 17:16 | CARD ---
APPROVED REPORT Date of service: 02/20/2018 Procedure(s) performed: Complete Heart Catheterization HISTORY The patient is a 87 year-old male with a history of : most recent EF: 29%. (EF Method: RADIONUCLIDE), renal failure with dialysis, chronic lung disease, previous diagnostic cath, tobacco history() : The patient is a former smoker , previous PCI (The PCI date was 07/18/2015), hypertension , dyslipidemia , Hx of multiple PTCa, , CKD, who had an abnormal stress test showing apical and inferior Ischemia EF-29%.Hx of AICD 7 years ago.. INDICATION The indication(s) include : positive stress test. CASE TECHNIQUE The patient was brought electively to the Cardiac Catheterization Laboratory in a fasting state and was prepped and draped in a sterile manner. The right femoral groin was infiltrated with 2% Lidocaine subcutaneous anesthesia. A 6 Fr x 25 cm [place] sheath was inserted into the right femoral artery without difficulty. Coronary angiography was performed using coronary diagnostic catheters. The left coronary system was accessed and visualized with a Diagnostic , 5F JL 4 CATH DXT 100 CM catheter. The right coronary system was accessed and visualized with a Diagnostic ,5F JL 4 CATH DXT 100 CM catheter. The left ventricle was accessed and visualized with a 5F PIGTAIL 145 CATH DXT 110 CM catheter. Left ventricular/Aortic Valve gradient assessed on pullback. Left ventriculogram was performed in LOUIS projection. Closure device was deployed with a 6 Fr / 7 Fr MynxGrip without any complications. The patient tolerated the procedure well and there were no complications associated with the procedure. Vessel Analysis The patient's coronary anatomy is right dominant. The left main coronary artery is a medium size vessel with diffuse calcification noted throughout this vessel and without significant stenosis. The left main bifurcates to the left anterior descending and circumflex. The left anterior descending artery is a medium size vessel with diffuse calcification noted throughout this vessel and without significant stenosis. Patent stent in Proximal to Mid LAD The first diagonal branch is a small size vessel with diffuse calcification noted throughout this vessel and without significant stenosis. The second diagonal branch is a small size vessel with diffuse calcification noted throughout this vessel and without significant stenosis. The circumflex artery is a medium size vessel with diffuse calcification noted throughout this vessel and without significant stenosis. The first obtuse marginal branch is a medium size vessel with diffuse calcification noted throughout this vessel and without significant stenosis. There is a 60-70% stenosis in the mid segment. The second obtuse marginal branch is a small size vessel with diffuse calcification noted throughout this vessel and without significant stenosis. The right coronary artery is a large size vessel with diffuse calcification noted throughout this vessel and without significant stenosis. patent stent in Mid and Distal segment The right posterior descending artery is a large size vessel with diffuse calcification noted throughout this vessel and without significant stenosis. patent stent in Mid R PDA The right posterolateral branch is a medium size vessel with diffuse calcification noted throughout this vessel and without significant stenosis. Left Ventricle The left ventricle is enlarged in size with moderately decreased contractility. Ischemic cardiomyopathy. The left ventricular ejection fraction is estimated to be 30-35%. The left ventricular end diastolic pressure is 8-10 mmHg. !6 -20 mm gradient on pull back peak to peak Right Heart Cath Findings The Right Atrial Pressure is 6 mmHg. The Right Ventricular Pressure is 35/6 mmHg. The Pulmonary Artery Pressure is 37/17 mmHg. with a mean of 23 The Pulmonary Catheter Wedge Pressure is 14 mmHg. PVR 2.45 Wood units. The cardiac output and index were assessed using thermo dilution. The Cardiac Output is 3.67 L/min. The Cardiac index is 1.99 L/min/m2. YVONNE 0.9-1.0 Cm2 Conclusion Non Obstructive CAD,limited to OM1 60% small Calibre vessel. Patent all Previously placed stents Ischemic CMP, EF_30-35%, EDP-8-10 mmof Hg. Peak to Peak gradient across Aortic valve 16-20 mmof Hg. YVONNE-0.9-1.cm2, C/w Moderate . RHC:RA-6,RV-35/6, PA-37/17 with a mean 23, PCW-14 , CO-3.67, CI-2.03, PVR-2.45 Wood unit Total 25 cc contrast used. Recommendations Aggressive Medical TherapyCardiac Risk Reduction Program Medical Therapy F/u Renal Fx today before goes home ,after hydration and in one week with dr. Castellon. CC; Drs. Castellon / Enma.
== END 2018-02-20 16:10 | disposition home or self-care (01) ==
LOC: SDSVAS 07:53
PROVIDERS: ATTEND Internal Medicine Cardiovascular Disease
DX: I25.10 Atherosclerotic heart disease of native coronary artery without angina pectoris (principal); I12.9 Hypertensive chronic kidney disease with stage 1 through stage 4 chronic kidney disease, or unspecified chronic kidney disease; N18.9 Chronic kidney disease, unspecified; J44.9 Chronic obstructive pulmonary disease, unspecified; E78.5 Hyperlipidemia, unspecified; I25.5 Ischemic cardiomyopathy; I27.20 Pulmonary hypertension, unspecified; I08.0 Rheumatic disorders of both mitral and aortic valves; Z79.82 Long term (current) use of aspirin; Z87.891 Personal history of nicotine dependence; Z95.5 Presence of coronary angioplasty implant and graft; Z95.810 Presence of automatic (implantable) cardiac defibrillator; Z99.2 Dependence on renal dialysis; R94.39 Abnormal result of other cardiovascular function study
CPT/HCPCS: 36415; 80048; 80061; 85025; 85610; 85730; 86850; 86900; 93005; 93460; 99152; 99153; C1760; C1769 ×2; C1887; C1894 ×2; C2629; J1644; J2250; J3010; J7030; Q9966

== ENCOUNTER 2018-11-05 10:00 | Outpatient (CLI) | payer MEDICARE | END 2018-11-05 10:01 | disposition home or self-care (01) | LOC: RAD 10:00 ==